=== PATIENT | female | born 1970 | race Two or more races ===

== ENCOUNTER 2020-07-24 09:48 | Outpatient (REF) | payer MEDICAID, SELFPAY | END 2020-07-24 09:49 | disposition home or self-care (01) | LOC: HO.LAB 09:48 | PROVIDERS: PCP Internal Medicine Geriatric Medicine; Visit Provider Internal Medicine | DX: Z76.89 Persons encountering health services in other specified circumstances (principal) ==

== ENCOUNTER 2020-12-18 15:21 | Outpatient (REF) | payer MEDICAID, SELFPAY | END 2020-12-18 15:22 | disposition home or self-care (01) | LOC: HO.MAMMO 15:21 | PROVIDERS: PCP Internal Medicine Geriatric Medicine; Visit Provider Internal Medicine Geriatric Medicine | DX: Z13.89 Encounter for screening for other disorder (principal) ==

== ENCOUNTER 2021-04-01 14:14 | Outpatient (REF) | payer MEDICAID, SELFPAY ==
--- NOTE | ~2021-04-01 | MM_ITS ---
EXAMINATION: MM DIAGNOSTIC DIGITAL BREAST TOMOSYNTHESIS, BILATERAL CLINICAL INFORMATION: Due for yearly. Also follow-up probable benign calcifications upper outer quadrant right breast. The lifetime risk of breast cancer based on the Tyrer-Cuzick Model is 6%. COMPARISON: Mammography: 12/11/2019, 06/06/2019, 11/24/2018, 11/20/2018 (BI-RADS 0), 11/17/2017 TECHNIQUE: Digital breast tomosynthesis is performed in both the craniocaudal and mediolateral oblique views along with computer-aided detection (CAD). Synthesized 2D images are generated from the tomosynthesis. Additional magnification views of the right breast are obtained in the CC, ML, and MLO views. FINDINGS: The breasts are heterogeneously dense, which may obscure small masses (ACR BI-RADS breast composition Category c). Parenchymal pattern is similar to prior studies. There is no significant mass, developing density, or architectural abnormality. There are no abnormal calcifications. There are vascular calcifications in the posterior upper outer right breast and right axilla. Other layering calcifications upper outer right breast noted on prior diagnostic studies are no longer demonstrated. There are no interval suspicious changes from prior diagnostic studies. The calcifications under prior surveillance are now considered benign. Results are provided to the patient at time of visit by the technologist. MM/MM tomosynthesis diagnostic RT IMPRESSION: No mammographic evidence of malignancy. ASSESSMENT: BI-RADS 2: Benign RECOMMENDATION: Routine annual mammography screening. This patient's information was entered into a reminder system with a target due date for their next mammogram.
== END 2021-04-01 14:15 | disposition home or self-care (01) ==
LOC: HO.MAMMO 14:14
PROVIDERS: Visit Provider Internal Medicine Geriatric Medicine
DX: R92.1 Mammographic calcification found on diagnostic imaging of breast (principal)
CPT/HCPCS: 77061; 77065

== ENCOUNTER 2021-09-21 01:07 | Emergency (ER) | payer MEDICAID, SELFPAY ==
[2021-09-21 01:09] VITALS: BP 180/111; PULSE 85; RESP 18; TEMP 36.8; O2SAT 93; BMI 20.1
[2021-09-21 03:09] VITALS: BP 195/99; PULSE 83; RESP 24; TEMP 36.7; O2SAT 99
[2021-09-21] MEDS: Ondansetron ODT 4 MG TAB.RAPDIS TRANSLINGU (03:23)
[2021-09-21 04:47] VITALS: BP 181/95; PULSE 74; RESP 18; O2SAT 97
[2021-09-21] MEDS: Ketorolac Tromethamine 15 MG/ML VIAL IM (04:54)
[2021-09-21] MEDS: Acetaminophen 325 MG TABLET 975 MG PO (04:54)
--- NOTE | 2021-09-21 04:56 | ED.NAVMDI ---
HPI - Nausea/Vomiting/Diarrhea General Chief complaint: Nausea/Vomiting/Diarrhea Stated complaint: vomiting Time Seen by Provider: 09/21/21 03:16 Source: patient Mode of arrival: ambulatory History of Present Illness HPI Narrative: 51-year-old female presents with complaints of having significant dental pain for which she was never prescribed any medication and then took some drops of morphine from her cousin for pain relief and then developed significant vomiting afterwards. The vomiting has since resolved and patient states that she is feeling much better. Otherwise, she denies any obstipation, diarrhea, urinary symptoms. Related Data Previous Rx's Medication Instructions Recorded ketorolac 10 mg tablet 10 mg PO Q6H PRN 5 Days #20 tab 09/21/21 ondansetron HCl 4 mg tablet 4 mg PO Q8H PRN #7 tab 09/21/21 (Zofran) Allergies Allergy/AdvReac Type Severity Reaction Status Date / Time No Known Allergies Allergy Unverified 07/10/20 16:47 [No Known Allergies*] Review of Systems Review of Systems: Pertinent positives and negatives as stated in HPI 10 point review of systems is otherwise negative. PMFSH Past Medical History Source: nursing notes reviewed Social History Social History Advance Directives: No Advance Directives Information Provided: No Patient : No Physical Exam Vital Signs: Vital Signs: Last Vital Signs Temp 98.0 F 09/21/21 03:09 Pulse 74 09/21/21 04:47 Resp 18 09/21/21 04:47 BP 181/95 H 09/21/21 04:47 Pulse Ox 97 09/21/21 04:47 Body Mass Index 20.1 VITAL SIGNS: Reviewed. GENERAL: Well developed, well nourished, in no acute distress. HEAD: Normocephalic/atraumatic EYES: PERRLA, EOMI OROPHARYNX: no oral lesions noted, posterior pharynx clear LUNGS: Normal breath sounds. No adventitious sounds or accessory muscle use. SpO2<97> CARDIOVASCULAR: Regular rate and rhythm without noted murmurs. ABDOMEN: Soft, non-tender, non-distended with bowel sounds. NEUROLOGIC: Alert and oriented x 4. Course Course Course Narrative: 51-year-old female with history and clinical presentation consistent with medication associated affects and now has completely resolved after being provided with Zofran. Patient will receive combination analgesics and then be discharged home in stable condition. Discharge Plan Discharge Clinical Impression: Pain, dental, Side effect of medication Patient Disposition: Home, Self-Care Instructions: Toothache (ED) Additional Instructions: 1. Tylenol 1000 mg, orally, every 6 hours as needed for pain control. Do not exceed 4000 mg within 24 hours. 2. Please follow-up with your dentist for re-evaluation and further outpatient management. Return to the ER for worsening symptoms. Prescriptions: New ondansetron HCl [Zofran] 4 mg tablet 4 mg PO Q8H PRN (Reason: nausea and vomiting) Qty: 7 RF: 0 ketorolac 10 mg tablet 10 mg PO Q6H PRN (Reason: pain) 5 Days Qty: 20 RF: 0 Referrals: Name,MD Orion [Primary Care Provider] - 2 days
== END 2021-09-21 05:24 | disposition home or self-care (01) ==
PROVIDERS: Emergency Provider Student in an Organized Health Care Education/Training Program; PCP Internal Medicine Geriatric Medicine
DX: R11.2 Nausea with vomiting, unspecified (principal); K08.89 Other specified disorders of teeth and supporting structures; Z79.899 Other long term (current) drug therapy
CPT/HCPCS: 96372; 99284; J1885

== ENCOUNTER → 2022-01-14 15:53 | Outpatient (BNVA) | payer MEDICAID, SELFPAY | PROVIDERS: PCP Internal Medicine Geriatric Medicine; Referring Provider Internal Medicine Geriatric Medicine; Visit Provider Nurse Practitioner | DX: R11.2 Nausea with vomiting, unspecified (principal); R10.13 Epigastric pain | CPT/HCPCS: 99202 ==

== ENCOUNTER 2023-04-11 13:42 | Emergency (ER) | payer MEDICAID, SELFPAY ==
[2023-04-11 15:29] VITALS: BP 136/94; PULSE 90; RESP 18; TEMP 36.3; O2SAT 97; BMI 19.5
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
[2023-04-11] MEDS: Morphine Sulfate Immed Release 15 MG TABLET PO (17:25)
[2023-04-11] MEDS: Lidocaine 4 % Patch ADH..PATCH 1 PATCH TRANSDERMA (17:25)
[2023-04-11] MEDS: Ketorolac Tromethamine 15 MG/ML VIAL 30 MG IM (18:47)
== END 2023-04-11 18:53 | disposition home or self-care (01) ==
PROVIDERS: Emergency Provider Emergency Medicine; PCP Internal Medicine Geriatric Medicine
DX: M62.838 Other muscle spasm (principal); M54.2 Cervicalgia; R51.9 Headache, unspecified; Z79.899 Other long term (current) drug therapy
CPT/HCPCS: 96372; 99283; 99284; J1885

== ENCOUNTER 2024-05-29 07:34 | Emergency (ER) | payer MEDICAID, SELFPAY ==
[2024-05-29 07:45] VITALS: BP 127/96; PULSE 114; RESP 17; TEMP 36.9; O2SAT 95; BMI 22.6
--- NOTE | 2024-05-29 08:08 | ED.SKABFB ---
HPI - Skin/Abscess/Foreign Bdy General Chief complaint: Skin/Abscess/Foreign Body Stated complaint: Fever Time Seen by Provider: 05/29/24 08:00 Source: patient and RN notes reviewed Mode of arrival: ambulatory Limitations: no limitations History of Present Illness ED Provider: Veronica Sheppard PA-C HPI narrative: This is a 53-year-old female who presents emergency department with complaints of shingles to the right side of her neck. Patient was seen in [place] on May 11 where she wakes diagnosed with shingles. She was prescribed acyclovir which she has been taking which has provided her without any relief. She states that the rash has improved however she continues to have burning and pain to the right side of her neck and jaw. She denies any headache, dizziness, blurred vision, ear pain, sore throat, chest pain, shortness breath, abdominal pain, nausea, vomiting or diarrhea. Denies taking any medications at home to treat her current symptoms other than the acyclovir. No other complaints or concerns at this time. Related Data Home Medications ?Medication ?Instructions ?Recorded ?Confirmed acetaminophen 500 mg tablet 500 mg PO Q8H PRN 01/14/22 clonazepam 2 mg tablet 2 mg PO BID 01/14/22 mirtazapine 30 mg tablet 30 mg PO BEDTIME 01/14/22 quetiapine 400 mg tablet,extended 400 mg PO BEDTIME 01/14/22 release 24 hr Previous Rx's ?Medication ?Instructions ?Recorded ketorolac 10 mg tablet 10 mg PO Q6H PRN pain 5 days #20 09/21/21 tabs ondansetron HCl 4 mg tablet 4 mg PO Q8H PRN nausea and 09/21/21 (Zofran) vomiting #7 tabs pantoprazole 40 mg tablet,delayed 40 mg PO DAILY #30 tabs 01/14/22 release cyclobenzaprine 10 mg tablet 10 mg PO BEDTIME PRN muscle spasm 04/11/23 #7 tabs ketorolac 10 mg tablet 10 mg PO TID PRN pain 5 days #15 04/11/23 tabs lidocaine 5 % topical patch 1 patch topical DAILY PRN pain #15 04/11/23 ea acetaminophen 500 mg tablet 1,000 mg (2 x 500 mg) PO Q8H PRN 05/29/24 (Tylenol Extra Strength) pain #30 tabs gabapentin 300 mg capsule 300 mg PO DAILY #20 caps 05/29/24 oxycodone 5 mg tablet 5 mg PO Q6H PRN pain #10 tabs 05/29/24 prednisone 20 mg tablet 40 mg (2 x 20 mg) PO DAILY 5 days 05/29/24 #10 tabs cephalexin 500 mg capsule 500 mg PO QID 10 days #40 caps 06/09/24 diphenhydramine HCl 50 mg capsule 50 mg PO Q8H PRN itching #12 caps 06/09/24 mupirocin 2 % topical ointment 1 appl topical TID #22 grams 06/09/24 oxycodone 5 mg tablet 5 mg PO Q6H PRN pain #14 tabs 06/09/24 Allergies Allergy/AdvReac Type Severity Reaction Status Date / Time No Known Allergies Allergy Verified 06/08/24 22:16 [No Known Allergies*] Review of Systems Review of Systems: Yes all other systems are reviewed and are negative Constitutional: Constitutional: Reports as per [facility] Social History Social History Advance Directives: No Advance Directives Information Provided: Yes Physical Exam Vital Signs: Vital Signs: Last Vital Signs Temp 98.2 F 05/29/24 09:04 Pulse 101 H 05/29/24 09:04 Resp 16 05/29/24 09:04 BP 122/86 05/29/24 09:04 Pulse Ox 96 05/29/24 09:04 O2 Del Method Room Air 05/29/24 09:04 BMI result Body Mass Index 22.6 Const: General: cooperative, comfortable and no acute distress Orientation/consciousness: patient oriented x3 Limitations: no limitations HEENT: Other: Right ear, with no erythema, vesicles within the ear canal Head: Yes normal to inspection, Yes normocephalic and Yes atraumatic Ears: hearing grossly normal bilaterally and TM's normal bilaterally General nose exam: Normal external nose present Face and sinus: Yes normal facial exam Mouth: Normal oral and palatal mucosa present, oropharynx normal and moist mucous membranes Throat: Yes posterior oropharynx normal Eyes: General: appearance normal, both eyes and all related structures Eyelids: Yes eyelids normal Conjunctivae: conjunctivae normal Sclerae: sclerae normal Pupils: Equal, round and reactive pupils present EOM: EOMs intact bilaterally Neck: Neck: Yes normal visual inspection, Yes full ROM and Yes no lymphadenopathy Lymphatic: no lymphadenopathy noted Chest: Chest palpation & inspection: normal inspection of the chest Resp: Effort & Inspection: normal respiratory effort and able to speak in complete sentences Auscultation: clear to auscultation bilaterally, no crackles, no rales, no rhonchi and no wheezes Cardio: Rate: regular rate Rhythm: regular rhythm Heart sounds: S1 normal heart sound present and S2 normal heart sound present GI: Inspection: Yes normal to inspection Skin: Other: Right lateral face just inferior to the ear healing flat lesions,, no drainage, no surrounding erythema or warmth, tender to light palpation General skin exam: no rashes or lesions noted Trauma: no lacerations or abrasions Wounds: no wounds Neuro: General: patient oriented x3 and moves all extremities Cranial nerves: Yes Equal, round and reactive pupils present Extrem: General: Yes normal to inspection Right upper extremity: normal to inspection Left upper extremity: normal to inspection Right lower extremity: normal to inspection Left lower extremity: normal to inspection Medications Administered Discontinued Medications Generic Name Dose Route Start Last Admin Trade Name Freq PRN Reason Stop Dose Admin Oxycodone HCl 5 mg 05/29/24 08:23 05/29/24 08:56 Oxycodone Hcl Immed Release 5 Mg Tablet PO 05/29/24 08:24 5 mg ONCE ONE Administration Medical Decision Making Medical Decision Making [facility] Narrative: This is a 53-year-old female who presents emergency department with complaints of ongoing shingle pain to the right side of her face and neck. She was diagnosed with shingles on May 11, she has been taking prescribed acyclovir without any relief. She has not taken any pain medication for her symptoms. She was not placed on prednisone. Patient healing rash consistent with shingles on the right side of her face, does not extend into the ear canal. No surrounding erythema or warmth. Vital signs are within normal limits. She is alert and oriented times 4, no neurologic symptoms, no headache, dizziness, blurred vision, double vision. Will treat with course of prednisone, and pain medication. Given strict return precautions. Advised to follow-up with her PCP. She understands and agrees with plan. Patient stable for discharge Differential Diagnosis Differential Diagnoses: The differential diagnosis associated with the presentation includes Cellulitis, shingles, post herpetic pain, contact dermatitis Discharge Plan Discharge Clinical Impression: Shingles Patient Disposition: Home, Self-Care Instructions: Shingles (ED) Additional Instructions: You were seen in the emergency department due to ongoing pain due to the shingles that is on the right side of your neck. Please take prescribed medication as directed. Continue taking your antiviral medication that you are prescribed in [place]. Take prescribed prednisone as directed. Take gabapentin for pain. You may also take oxycodone as needed for severe pain. Please be advised that oxycodone can cause drowsiness, do not drink alcohol or drive while taking this medication. Take Tylenol for your symptoms as well. If any new or worsening symptoms occur including but not limited to changes in vision, worsening pain, please return for re-evaluation. Prescriptions: New oxycodone 5 mg tablet 5 mg PO Q6H PRN (Reason: pain) Qty: 10 0RF Rx Instructions: Partial Fill upon patient request. acetaminophen [Tylenol Extra Strength] 500 mg tablet 1,000 mg PO Q8H PRN (Reason: pain) Qty: 30 0RF prednisone 20 mg tablet 40 mg PO DAILY 5 Days Qty: 10 0RF gabapentin 300 mg capsule 300 mg PO DAILY Qty: 20 0RF No Action ondansetron HCl [Zofran] 4 mg tablet 4 mg PO Q8H PRN (Reason: nausea and vomiting) Qty: 7 0RF ketorolac 10 mg tablet 10 mg PO Q6H PRN (Reason: pain) 5 Days Qty: 20 0RF Rx Instructions: Patient received Toradol in the emergency room. cyclobenzaprine 10 mg tablet 10 mg PO BEDTIME PRN (Reason: muscle spasm) Qty: 7 0RF ketorolac 10 mg tablet 10 mg PO TID PRN (Reason: pain) 5 Days Qty: 15 0RF lidocaine 5 % adhesive patch,medicated 1 patch topical DAILY PRN (Reason: pain) Qty: 15 0RF Rx Instructions: leave on most painful area for up to 12 hrs oxycodone 5 mg tablet 5 mg PO Q6H PRN (Reason: pain) Qty: 14 0RF Rx Instructions: Partial Fill upon patient request. mupirocin 2 % ointment 1 appl topical TID Qty: 22 0RF cephalexin 500 mg capsule 500 mg PO QID 10 Days Qty: 40 0RF diphenhydramine HCl 50 mg capsule 50 mg PO Q8H PRN (Reason: itching) Qty: 12 0RF quetiapine 400 mg tablet extended release 24 hr 400 mg PO BEDTIME clonazepam 2 mg tablet 2 mg PO BID mirtazapine 30 mg tablet 30 mg PO BEDTIME acetaminophen 500 mg tablet 500 mg PO Q8H PRN pantoprazole 40 mg tablet,delayed release (DR/EC) 40 mg PO DAILY Qty: 30 6RF Interventions: ED Discharge Assessment Last Done: 05/29/24 09:04 Discharge Date/Time: 05/29/24 09:05 Print Language: Nauruan
[2024-05-29] MEDS: oxyCODONE HCl Immed Release 5 MG TABLET PO (08:56)
[2024-05-29 09:04] VITALS: BP 122/86; PULSE 101; RESP 16; TEMP 36.8; O2SAT 96
--- NOTE | 2024-05-29 09:04 | PC.NURSE ---
pt medicated per order
== END 2024-05-29 09:05 | disposition home or self-care (01) ==
PROVIDERS: Emergency Provider Emergency Medicine; PCP Internal Medicine Geriatric Medicine
DX: B02.9 Zoster without complications (principal); R21 Rash and other nonspecific skin eruption
CPT/HCPCS: 99283

== ENCOUNTER 2024-06-08 21:56 | Emergency (ER) | payer MEDICAID, SELFPAY ==
[2024-06-08 22:12] VITALS: BP 169/97; PULSE 116; RESP 24; TEMP 36.6; O2SAT 98; BMI 22.7
--- NOTE | 2024-06-09 00:18 | ED_ITS ---
HPI - General Adult General Chief complaint: General Medical Stated complaint: rash on neck Time Seen by Provider: 06/09/24 00:18 History of Present Illness ED Provider: Setve BREWER narrative: The patient is a 53-year-old female who comes to the emergency room with a complaint of pain on the right side of her neck and face. She says that 1 month ago on May 08 she was diagnosed with shingles in [place]. She was prescribed acyclovir which she took. She continued to have a lot of pain on the right side of her face and the right side of her neck and a lot of skin dryness and redness in the same region. She came to the emergency room here on May 29, 10 days ago. At that time she was prescribed a course of prednisone, gabapentin, and oxycodone. The patient returns today saying that she is not getting any better. She continues to have a great deal of pain and peeling and scaling of the skin of her face and neck on the right side. She also says that she has had fevers intermittently. She says she had a temperature of 102 degrees yesterday. She feels extremely bad. Related Data Home Medications ?Medication ?Instructions ?Recorded ?Confirmed acetaminophen 500 mg tablet 500 mg PO Q8H PRN 01/14/22 clonazepam 2 mg tablet 2 mg PO BID 01/14/22 mirtazapine 30 mg tablet 30 mg PO BEDTIME 01/14/22 quetiapine 400 mg tablet,extended 400 mg PO BEDTIME 01/14/22 release 24 hr Previous Rx's ?Medication ?Instructions ?Recorded ketorolac 10 mg tablet 10 mg PO Q6H PRN pain 5 days #20 09/21/21 tabs ondansetron HCl 4 mg tablet 4 mg PO Q8H PRN nausea and 09/21/21 (Zofran) vomiting #7 tabs pantoprazole 40 mg tablet,delayed 40 mg PO DAILY #30 tabs 01/14/22 release cyclobenzaprine 10 mg tablet 10 mg PO BEDTIME PRN muscle spasm 04/11/23 #7 tabs ketorolac 10 mg tablet 10 mg PO TID PRN pain 5 days #15 04/11/23 tabs lidocaine 5 % topical patch 1 patch topical DAILY PRN pain #15 04/11/23 ea acetaminophen 500 mg tablet 1,000 mg (2 x 500 mg) PO Q8H PRN 05/29/24 (Tylenol Extra Strength) pain #30 tabs gabapentin 300 mg capsule 300 mg PO DAILY #20 caps 05/29/24 oxycodone 5 mg tablet 5 mg PO Q6H PRN pain #10 tabs 05/29/24 prednisone 20 mg tablet 40 mg (2 x 20 mg) PO DAILY 5 days 05/29/24 #10 tabs cephalexin 500 mg capsule 500 mg PO QID 10 days #40 caps 06/09/24 diphenhydramine HCl 50 mg capsule 50 mg PO Q8H PRN itching #12 caps 06/09/24 mupirocin 2 % topical ointment 1 appl topical TID #22 grams 06/09/24 oxycodone 5 mg tablet 5 mg PO Q6H PRN pain #14 tabs 06/09/24 Allergies Allergy/AdvReac Type Severity Reaction Status Date / Time No Known Allergies Allergy Verified 06/08/24 22:16 [No Known Allergies*] Review of Systems 2 Review of Systems: Yes all other systems are reviewed and are negative [facility] Social History Social History Advance Directives: No Advance Directives Information Provided: Yes Physical Exam ED Vital Signs: Vital Signs - 24 hr 06/08/24 22:12 06/09/24 01:24 06/09/24 02:11 Temperature 97.9 F Pulse Rate 116 H Respiratory Rate 24 H 18 14 Blood Pressure 169/97 H Pulse Oximetry 98 Oxygen Delivery Method Room Air 06/09/24 02:23 Temperature 97.8 F Pulse Rate 100 Respiratory Rate 18 Blood Pressure 160/90 H Pulse Oximetry 98 Oxygen Delivery Method Room Air BMI result Body Mass Index 22.7 Const Other: The patient is a 53-year-old female who was awake and alert and seems very anxious and uncomfortable. She has a lot of dryness and redness to the right side of her neck, the right side of her face, and the right external ear. HENMT Other: The patient has an unusual area of skin redness and dryness in the right side of her face and the right external ear extending into the right side of her neck. The auricle of the right ear is significantly affected with apparent dryness and redness of the skin. With otoscopic exam there is no purulence in the right ear canal. The tympanic membrane appears normal. Posterior pharynx is unremarkable. No intraoral lesions. Eyes Other: The eyes appear spared. Pupils are round equal, conjunctivae are clear, extraocular movements are intact, the eyelids are unremarkable. Neck Other: The rash which is on the patient's right cheek and around the right ear extends into the right upper neck. It is characterized by redness and dry skin. No neck swelling. No adenopathy Resp Effort & Inspection: normal respiratory effort Auscultation: clear to auscultation bilaterally Cardio Rate: regular rate Rhythm: regular rhythm Heart sounds: S1 normal heart sound present and S2 normal heart sound present GI Other: Abdomen is soft and nontender Skin Other: The skin of the right side of the face, the right ear, and the right upper neck is all quite abnormal. There is a pale erythema associated with significant dryness and flakiness of the skin. She is diffusely tender. There is no drainage or purulence. Interestingly there seems to be some slight skin changes to the tips of the fingers of the right hand. The patient thinks that the problems from the skin on the right side of her face are spreading to the tips of the fingers from her constant rubbing and itching. Neuro Other: The patient is awake and alert. She seemed distracted by the discomfort of her facial skin problems. She seemed very itchy. Extrem Other: No peripheral edema Medications Administered Discontinued Medications Generic Name Dose Route Start Last Admin Trade Name Freq PRN Reason Stop Dose Admin Cephalexin HCl 1,000 mg 06/09/24 01:53 06/09/24 02:11 Cephalexin 500 Mg Capsule PO 06/09/24 01:54 1,000 mg ONCE ONE Administration Diphenhydramine HCl 50 mg 06/09/24 01:55 06/09/24 02:11 Diphenhydramine Hcl 25 Mg Capsule PO 06/09/24 01:56 50 mg ONCE ONE Administration Lorazepam 1 mg 06/09/24 00:30 06/09/24 01:24 Lorazepam 2 Mg/Ml Vial IVPUSH 06/09/24 00:31 1 mg ONCE ONE Administration Morphine Sulfate 4 mg 06/09/24 00:30 06/09/24 01:24 Morphine Sulfate 10 Mg/Ml Cartridge IVPUSH 06/09/24 00:31 4 mg ONCE ONE Administration Protocol Medical Decision Making Medical Decision Making [facility] Narrative: The patient presents with a very unusual skin problem on the right side of her face, the auricle of the right ear, and the right upper neck. One month ago she was apparently diagnosed with shingles on the right side of her face in [place] and she took a course of acyclovir. She was seen here 10 days ago on put on a course of prednisone. She feels that she is not getting any better at all. She looks extremely uncomfortable, complaining of discomfort and itchiness. She says that she has been having fevers at home. She does not seem septic [place] [id number] but her CRP is normal. Overall her presentation is puzzling. It is not entirely clear to me that this is a post herpetic or post zoster syndrome. It looks something like a dermatitis or perhaps it is some kind of impetigo variant. Although there was no pus in the right ear canal swab of the right ear canal for a culture. The patient will be placed on a course of cephalexin and will also be prescribed mupirocin to apply topically. She was prescribed oxycodone for pain and diphenhydramine for itchiness. She should contact her PCP on Tuesday. I suspect she may need to be referred to dermatology. Lab Data 06/09/24 01:14 06/09/24 01:14 Labs: Lab Results 06/09/24 Range/Units 01:14 WBC 15.1 H (4.8-10.8) X10*3/uL RBC 4.47 (4.20-5.50) X10*6/uL Hgb 13.6 (12.0-16.0) g/dl Hct 40.3 (37.0-47.0) % MCV 90.2 (80.0-98.0) fL MCH 30.4 (27.0-33.0) pg MCHC 33.7 (31.0-35.0) g/dl RDW 14.6 (11.0-16.0) % Plt Count 278 (160-400) X10*3/uL MPV 10.3 (9.4-12.3) fL Immature Gran % (Auto) 0.5 H (0.0-0.4) % Neut % (Auto) 74.3 H (45-73) % Lymph % (Auto) 17.2 L (20-40) % [place] % (Auto) 7.9 (2-11) % Eos % (Auto) 0.0 (0-4) % Baso % (Auto) 0.1 (0-2) % Lymph # (Auto) 2.6 (1.2-4.9) X10*3/uL [place] # (Auto) 1.2 (0.1-1.2) X10*3/uL Eos # (Auto) 0.0 (0.0-0.4) X10*3/uL Baso # (Auto) 0.0 (0.0-0.2) X10*3/uL Abs Immat Gran (auto) 0.08 H (0.00-0.03) X10*3/uL Absolute Neuts (auto) 11.2 H (2.0-8.3) x10*3/uL Absolute Nucleated RBC 0.000 (0.0-0.012) X10*3/uL Nucleated RBC % (auto) 0.0 (0.0-0.2) /100WBC Sodium 140 (135-145) mmol/L Potassium 4.0 (3.3-5.1) mmol/L Chloride 102 (96-108) mmol/L Carbon Dioxide 27 (22-29) mmol/L Anion Gap 15 (12-20) BUN 15 (9-16) mg/dL Creatinine 0.74 (0.5-1.4) mg/dL Estim Creat Clear Calc 71.1 Estimated GFR > 60 Random Glucose 99 (60-115) mg/dL Lactic Acid 0.8 (0.5-2.0) mmol/L Calcium 10.0 (8.4-10.2) mg/dL Total Bilirubin 0.3 (0.0-1.0) mg/dL Direct Bilirubin 0.1 (0.0-0.5) mg/dL AST 14 (5-31) U/L ALT 20 (0-31) U/L Alkaline Phosphatase 98 (39-117) U/L C-Reactive Protein 0.27 (< or = 0.50) mg/dL Total Protein 7.2 (6.5-8.0) g/dL Albumin 4.4 (3.5-5.0) g/dL Discharge Plan Discharge Clinical Impression: Facial dermatitis Patient Disposition: Home, Self-Care Additional Instructions: Please take the antibiotic cephalexin 4 times a day, approximately every 6 hours. Please apply mupirocin ointment to your affected skin 3 times a day. Please use Benadryl as needed for itchiness. I have sent a prescription for oxycodone that you may use as needed for pain. You may also use ibuprofen and acetaminophen. Please contact your regular doctor on Tuesday. Please get rechecked early next week at your regular doctor's office. Return to the emergency room if significantly worse. Prescriptions: New oxycodone 5 mg tablet 5 mg PO Q6H PRN (Reason: pain) Qty: 14 0RF Rx Instructions: Partial Fill upon patient request. mupirocin 2 % ointment 1 appl topical TID Qty: 22 0RF cephalexin 500 mg capsule 500 mg PO QID 10 Days Qty: 40 0RF diphenhydramine HCl 50 mg capsule 50 mg PO Q8H PRN (Reason: itching) Qty: 12 0RF No Action ondansetron HCl [Zofran] 4 mg tablet 4 mg PO Q8H PRN (Reason: nausea and vomiting) Qty: 7 0RF ketorolac 10 mg tablet 10 mg PO Q6H PRN (Reason: pain) 5 Days Qty: 20 0RF Rx Instructions: Patient received Toradol in the emergency room. cyclobenzaprine 10 mg tablet 10 mg PO BEDTIME PRN (Reason: muscle spasm) Qty: 7 0RF ketorolac 10 mg tablet 10 mg PO TID PRN (Reason: pain) 5 Days Qty: 15 0RF lidocaine 5 % adhesive patch,medicated 1 patch topical DAILY PRN (Reason: pain) Qty: 15 0RF Rx Instructions: leave on most painful area for up to 12 hrs oxycodone 5 mg tablet 5 mg PO Q6H PRN (Reason: pain) Qty: 10 0RF Rx Instructions: Partial Fill upon patient request. acetaminophen [Tylenol Extra Strength] 500 mg tablet 1,000 mg PO Q8H PRN (Reason: pain) Qty: 30 0RF prednisone 20 mg tablet 40 mg PO DAILY 5 Days Qty: 10 0RF gabapentin 300 mg capsule 300 mg PO DAILY Qty: 20 0RF quetiapine 400 mg tablet extended release 24 hr 400 mg PO BEDTIME clonazepam 2 mg tablet 2 mg PO BID mirtazapine 30 mg tablet 30 mg PO BEDTIME acetaminophen 500 mg tablet 500 mg PO Q8H PRN pantoprazole 40 mg tablet,delayed release (DR/EC) 40 mg PO DAILY Qty: 30 6RF Referrals: Name,MD Orion [Physician] - (complex facial dermatitis) Interventions: ED Discharge Assessment Last Done: 06/09/24 02:23 Discharge Date/Time: 06/09/24 02:25 Print Language: [place] L[place]an
[2024-06-09 01:19] LABS: Basophils Percent Auto 0.1 % (0-2); Hematocrit 40.3 % (37.0-47.0); Hemoglobin 13.6 g/dl (12.0-16.0); Imm Gran Abs Auto 0.08 X10*3/uL (0.00-0.03); Imm Gran Pct Auto 0.5 % (0.0-0.4); Lymphocytes Absolute Auto 2.6 X10*3/uL (1.2-4.9); Lymphocytes Percent Auto 17.2 % (20-40); MANUAL DIFF FLAG NO; Mean Corpuscular HGB Conc 33.7 g/dl (31.0-35.0); Mean Corpuscular Hemoglobin 30.4 pg (27.0-33.0); Mean Corpuscular Volume 90.2 fL (80.0-98.0); Mean Platelet Volume 10.3 fL (9.4-12.3); Monocytes Absolute Auto 1.2 X10*3/uL (0.1-1.2); Monocytes Percent Auto 7.9 % (2-11); Neutrophils Absolute Auto 11.2 x10*3/uL (2.0-8.3); Neutrophils Percent Auto 74.3 % (45-73); Platelet Count 278 X10*3/uL (160-400); Red Blood Count 4.47 X10*6/uL (4.20-5.50); Red Cell Distribution Width 14.6 % (11.0-16.0); White Blood Count 15.1 X10*3/uL (4.8-10.8)
[2024-06-09 01:24] VITALS: RESP 18
[2024-06-09] MEDS: LORazepam 2 MG/ML VIAL 1 MG IVPUSH (01:24)
[2024-06-09] MEDS: Morphine Sulfate 10 MG/ML CARTRIDGE 4 MG IVPUSH (01:24)
[2024-06-09 01:28] LABS: Lactic Acid 0.8 mmol/L (0.5-2.0)
--- NOTE | 2024-06-09 01:30 | PC.NURSE ---
Pt medicated per mar. Pt denies NKDA Pts family at bedside. Plan of care ongoing
[2024-06-09 01:33] LABS: Alanine Aminotransferase 20 U/L (0-31); Albumin Level 4.4 g/dL (3.5-5.0); Alkaline Phosphatase 98 U/L (39-117); Anion Gap 15 (12-20); Aspartate Amino Transferase 14 U/L (5-31); Bilirubin Direct 0.1 mg/dL (0.0-0.5); Bilirubin Total 0.3 mg/dL (0.0-1.0); Blood Urea Nitrogen 15 mg/dL (9-16); C Reactive Protein 0.27 mg/dL (< or = 0.50); Carbon Dioxide 27 mmol/L (22-29); Chloride 102 mmol/L (96-108); Creatinine Clr Calc Pharmacy 71.1; Estimated Glomerular Filt Rate > 60; Glucose Random 99 mg/dL (60-115); Sodium 140 mmol/L (135-145); Total Protein 7.2 g/dL (6.5-8.0)
[2024-06-09 02:11] VITALS: RESP 14
[2024-06-09] MEDS: cephALEXin 500 MG CAPSULE 1000 MG PO (02:11)
[2024-06-09] MEDS: diphenhydrAMINE HCL 25 MG CAPSULE 50 MG PO (02:11)
--- NOTE | 2024-06-09 02:17 | PC.NURSE ---
Pt medicated per dec. Plan of care ongoing.
[2024-06-09 02:23] VITALS: BP 160/90; PULSE 100; RESP 18; TEMP 36.6; O2SAT 98
== END 2024-06-09 02:25 | disposition home or self-care (01) ==
PROVIDERS: Emergency Provider Emergency Medicine; PCP Internal Medicine
DX: L30.8 Other specified dermatitis (principal)
CPT/HCPCS: 36415; 80048; 80076; 83605; 85025; 86140; 87040; 87070; 87077; 87186; 87205; 96374; 96375; 99284; J2060; J2270

== ENCOUNTER 2024-06-11 18:30 | Emergency (ER) | payer MEDICAID, SELFPAY ==
[2024-06-11 23:35] VITALS: BP 197/131; PULSE 106; RESP 20; TEMP 37.3; O2SAT 98; BMI 22.8
--- NOTE | 2024-06-12 00:29 | ED_ITS ---
HPI - General Adult General Chief complaint: General Medical Stated complaint: shingles Time Seen by Provider: 06/11/24 23:56 Source: patient Mode of arrival: ambulatory Limitations: no limitations History of Present Illness ED Provider: darius Related Data Home Medications ?Medication ?Instructions ?Recorded ?Confirmed acetaminophen 500 mg tablet 500 mg PO Q8H PRN 01/14/22 clonazepam 2 mg tablet 2 mg PO BID 01/14/22 mirtazapine 30 mg tablet 30 mg PO BEDTIME 01/14/22 quetiapine 400 mg tablet,extended 400 mg PO BEDTIME 01/14/22 release 24 hr Previous Rx's ?Medication ?Instructions ?Recorded ketorolac 10 mg tablet 10 mg PO Q6H PRN pain 5 days #20 09/21/21 tabs ondansetron HCl 4 mg tablet 4 mg PO Q8H PRN nausea and 09/21/21 (Zofran) vomiting #7 tabs pantoprazole 40 mg tablet,delayed 40 mg PO DAILY #30 tabs 01/14/22 release cyclobenzaprine 10 mg tablet 10 mg PO BEDTIME PRN muscle spasm 04/11/23 #7 tabs ketorolac 10 mg tablet 10 mg PO TID PRN pain 5 days #15 04/11/23 tabs lidocaine 5 % topical patch 1 patch topical DAILY PRN pain #15 04/11/23 ea acetaminophen 500 mg tablet 1,000 mg (2 x 500 mg) PO Q8H PRN 05/29/24 (Tylenol Extra Strength) pain #30 tabs gabapentin 300 mg capsule 300 mg PO DAILY #20 caps 05/29/24 oxycodone 5 mg tablet 5 mg PO Q6H PRN pain #10 tabs 05/29/24 prednisone 20 mg tablet 40 mg (2 x 20 mg) PO DAILY 5 days 05/29/24 #10 tabs cephalexin 500 mg capsule 500 mg PO QID 10 days #40 caps 06/09/24 diphenhydramine HCl 50 mg capsule 50 mg PO Q8H PRN itching #12 caps 06/09/24 mupirocin 2 % topical ointment 1 appl topical TID #22 grams 06/09/24 oxycodone 5 mg tablet 5 mg PO Q6H PRN pain #14 tabs 06/09/24 gabapentin 300 mg capsule 300 mg PO BID #60 caps 06/12/24 oxycodone 5 mg tablet 5 mg PO Q6H PRN pain #20 tabs 06/12/24 Allergies Allergy/AdvReac Type Severity Reaction Status Date / Time No Known Allergies Allergy Verified 06/11/24 23:36 [No Known Allergies*] [facility] Social History Social History Advance Directives: No Advance Directives Information Provided: Yes Do you have a plan to hurt others: No Plan Physical Exam ED Vital Signs: Vital Signs - 24 hr 06/11/24 23:35 Temperature 99.1 F Pulse Rate 106 H Respiratory Rate 20 Blood Pressure 197/131 H Pulse Oximetry 98 Oxygen Delivery Method Room Air BMI result Body Mass Index 22.8 Discharge Plan Discharge Clinical Impression: HZV (herpes zoster virus) post herpetic neuralgia Patient Disposition: Home, Self-Care Instructions: Shingles (ED) Additional Instructions: Continue medication as prescribed Pain medication as prescribed Increase the dose of gabapentin to 300 mg twice daily Follow with PCP Prescriptions: New oxycodone 5 mg tablet 5 mg PO Q6H PRN (Reason: pain) Qty: 20 0RF Rx Instructions: Partial Fill upon patient request. gabapentin 300 mg capsule 300 mg PO BID Qty: 60 0RF No Action ondansetron HCl [Zofran] 4 mg tablet 4 mg PO Q8H PRN (Reason: nausea and vomiting) Qty: 7 0RF ketorolac 10 mg tablet 10 mg PO Q6H PRN (Reason: pain) 5 Days Qty: 20 0RF Rx Instructions: Patient received Toradol in the emergency room. cyclobenzaprine 10 mg tablet 10 mg PO BEDTIME PRN (Reason: muscle spasm) Qty: 7 0RF ketorolac 10 mg tablet 10 mg PO TID PRN (Reason: pain) 5 Days Qty: 15 0RF lidocaine 5 % adhesive patch,medicated 1 patch topical DAILY PRN (Reason: pain) Qty: 15 0RF Rx Instructions: leave on most painful area for up to 12 hrs oxycodone 5 mg tablet 5 mg PO Q6H PRN (Reason: pain) Qty: 14 0RF Rx Instructions: Partial Fill upon patient request. mupirocin 2 % ointment 1 appl topical TID Qty: 22 0RF cephalexin 500 mg capsule 500 mg PO QID 10 Days Qty: 40 0RF diphenhydramine HCl 50 mg capsule 50 mg PO Q8H PRN (Reason: itching) Qty: 12 0RF oxycodone 5 mg tablet 5 mg PO Q6H PRN (Reason: pain) Qty: 10 0RF Rx Instructions: Partial Fill upon patient request. acetaminophen [Tylenol Extra Strength] 500 mg tablet 1,000 mg PO Q8H PRN (Reason: pain) Qty: 30 0RF prednisone 20 mg tablet 40 mg PO DAILY 5 Days Qty: 10 0RF gabapentin 300 mg capsule 300 mg PO DAILY Qty: 20 0RF quetiapine 400 mg tablet extended release 24 hr 400 mg PO BEDTIME clonazepam 2 mg tablet 2 mg PO BID mirtazapine 30 mg tablet 30 mg PO BEDTIME acetaminophen 500 mg tablet 500 mg PO Q8H PRN pantoprazole 40 mg tablet,delayed release (DR/EC) 40 mg PO DAILY Qty: 30 6RF Interventions: BENOIT Worksheet Last Done: 06/11/24 20:49 Print Language: Chinese
[2024-06-12] MEDS: Morphine Sulfate Immed Release 15 MG TABLET PO (01:27)
[2024-06-12 01:30] VITALS: BP 197/131; PULSE 106; RESP 20; TEMP 37.3; O2SAT 98
== END 2024-06-12 01:32 | disposition home or self-care (01) ==
PROVIDERS: Emergency Provider Internal Medicine; PCP Internal Medicine Geriatric Medicine
DX: B02.29 Other postherpetic nervous system involvement (principal)
CPT/HCPCS: 99283

== ENCOUNTER 2024-07-07 19:12 | Emergency (ER) | payer MEDICAID, SELFPAY ==
--- NOTE | ~2024-07-07 | XR_ITS ---
EXAMINATION: XR FINGER, LEFT CLINICAL INFORMATION: Third MCP pain and swelling COMPARISON: None available. TECHNIQUE: Single view hand with 2 additional of the left third digit. FINDINGS: Degenerative changes are seen at the first CMC joint. No other abnormalities are seen. No fractures or dislocations XR/XR finger LT min 2V IMPRESSION: Degenerative changes at the first CMC joint. Electronically signed by: Harpreet Marks MD 07/07/2024 10:49 PM EDT
--- NOTE | 2024-07-07 19:41 | ED.GENADULT ---
HPI - General Adult General Chief complaint: Extremity Injury, Upper Stated complaint: left hand swollen Time Seen by Provider: 07/07/24 21:03 Source: patient Mode of arrival: ambulatory Limitations: no limitations History of Present Illness ED Provider: Anupama OQUENDO HPI narrative: This is a 54 year old female presents w/ left hand pain since last night patient reports she attempted to flick someone and since then has been having pain and swelling. Pain is worse w/ movment and better at rest. No blunt trauma. No numbness or tingling. Denies fevers, chills. Related Data Home Medications ?Medication ?Instructions ?Recorded ?Confirmed acetaminophen 500 mg tablet 500 mg PO Q8H PRN 01/14/22 clonazepam 2 mg tablet 2 mg PO BID 01/14/22 mirtazapine 30 mg tablet 30 mg PO BEDTIME 01/14/22 quetiapine 400 mg tablet,extended 400 mg PO BEDTIME 01/14/22 release 24 hr Previous Rx's ?Medication ?Instructions ?Recorded ketorolac 10 mg tablet 10 mg PO Q6H PRN pain 5 days #20 09/21/21 tabs ondansetron HCl 4 mg tablet 4 mg PO Q8H PRN nausea and 09/21/21 (Zofran) vomiting #7 tabs pantoprazole 40 mg tablet,delayed 40 mg PO DAILY #30 tabs 01/14/22 release cyclobenzaprine 10 mg tablet 10 mg PO BEDTIME PRN muscle spasm 04/11/23 #7 tabs ketorolac 10 mg tablet 10 mg PO TID PRN pain 5 days #15 04/11/23 tabs lidocaine 5 % topical patch 1 patch topical DAILY PRN pain #15 04/11/23 ea acetaminophen 500 mg tablet 1,000 mg (2 x 500 mg) PO Q8H PRN 05/29/24 (Tylenol Extra Strength) pain #30 tabs gabapentin 300 mg capsule 300 mg PO DAILY #20 caps 05/29/24 oxycodone 5 mg tablet 5 mg PO Q6H PRN pain #10 tabs 05/29/24 prednisone 20 mg tablet 40 mg (2 x 20 mg) PO DAILY 5 days 05/29/24 #10 tabs cephalexin 500 mg capsule 500 mg PO QID 10 days #40 caps 06/09/24 diphenhydramine HCl 50 mg capsule 50 mg PO Q8H PRN itching #12 caps 06/09/24 mupirocin 2 % topical ointment 1 appl topical TID #22 grams 06/09/24 oxycodone 5 mg tablet 5 mg PO Q6H PRN pain #14 tabs 06/09/24 gabapentin 300 mg capsule 300 mg PO BID #60 caps 06/12/24 oxycodone 5 mg tablet 5 mg PO Q6H PRN pain #20 tabs 06/12/24 ketorolac 10 mg tablet 10 mg PO TID PRN pain 5 days #15 07/07/24 tabs Allergies Allergy/AdvReac Type Severity Reaction Status Date / Time No Known Allergies Allergy Verified 07/07/24 19:44 [No Known Allergies*] Review of Systems Review of Systems: Yes all other systems are reviewed and are negative FORMERLY [facility] Past Medical History Attestation statement: The following information was validated with the patient. Source: old records reviewed and nursing notes reviewed Social History Social History Advance Directives: No Advance Directives Information Provided: No Do you have a plan to hurt others: No Plan Physical Exam ED Vital Signs: Vital Signs - 24 hr 07/07/24 19:42 Temperature 98.0 F Pulse Rate 103 H Respiratory Rate 14 Blood Pressure 178/104 H Pulse Oximetry 99 Oxygen Delivery Method Room Air BMI result Body Mass Index 22.1 Tachycardic and hypertensive likely secondary to pain Appearance: Alert.? Oriented X3.? No acute distress.? Head: Normocephalic, atraumatic, no step-offs or deformities Eyes: Pupils equal, round and reactive to light.? ENT: Pharynx normal.? Neck: Normal inspection.? Neck supple.? CVS: Pulses normal.? Respiratory: No respiratory distress. Skin: Skin warm and dry.? Normal skin color.? Normal skin turgor.? Extremities: No lower extremity edema.? No calf ttp. 5/5 strength to bilateral upper and lower extremities. + swelling to the dorsal aspect overlying the extensor digitorum tendons of the L hand tendons. TTP to dorsal aspect of L hand. 2+ radial pulses. Normal distal sensation b/l. No wrist drop b/l. Normal cap refil < 2 seconds b/l. Patient able to wiggle all her fingers however with slight discomfort. Flexion and extension are both uncomfortable however able to do flexion and extension bilaterally of fingers and wrist. Neuro: Oriented X 3.? No motor deficit.? No sensory deficit. CN 2-12 intact Course Course Course Narrative: Patient is a 54-year-old female right-hand dominant presenting to emergency department for evaluation of pain and swelling over the dorsum of the left hand involving primarily the 3rd MCP. States that she went to flick her finger at someone when she felt suddenly pain and inability to do so, has subsequent swelling and erythema now, mild decreased flexion of the digit, finger is held in extension. Denies any additional injury recently. Denies fevers or chills. Reevaluation(s) Reevaluation #1: X-ray pending however shared images with ortho. Amadou Delgado recommends alexandre tape and no heavy lifting more than a cell phone/coffee cup. Limit gripping. No signs of complete tear based off of history Will have her follow up outpatient Time: 21:19 Medical Decision Making Medical Decision Making MDM Narrative: 54-year-old female presents with left hand pain and swelling since yesterday status post trying to flick somebody Physical exam there is swelling to the dorsal aspect overlying the extensor digitorum tendons of the hand tendons. Please refer to images in the chart. History and physical exam concerning for extensor digitorum strain versus rupture. No signs of septic joint or threat to limb. Unlikely arterial or venous occlusion. Plan x-ray will reach out to ortho for input Differential Diagnosis Differential Diagnoses: The differential diagnosis associated with the presentation includes History and physical exam concerning for extensor digitorum strain versus rupture. No signs of septic joint or threat to limb. Unlikely arterial or venous occlusion. Admission/Observation Consideration of admission/observation: Escalation of care including admission/observation considered Unlikely Consult Healthcare Provider Management of the patient was discussed with: Manufacturing Accountant (Amadou Delgado recommends alexandre tape and no heavy lifting more than a cell phone/coffee cup. Limit ripping. No signs of complete tear based off of history) Independent Interpretation I performed an independent interpretation of an: Plain X-Ray Radiology Impression Discussion of test interpretation with radiology: I have reviewed the radiologist's reading. External Record Review External record reviewed: Office record, Outpatient record and Prior outpatient labs Chronic Conditions Patient?s care impacted by: Other (PTSD, hypertension, bipolar) Social Determinants Patient?s care significantly limited by Social Determinants of Health including: Low income, Problems related to employment and Other Social Determinant of Health Critical Care Time Critical Care Time Critical Care Time: Yes Total Critical Care Time: 35 Attestation: I attest to this time spent taking care of the patient, obtaining history, physical, reviewing labs, imaging, treatment of patients condition +/- specialist/hospitalist consult Discharge Plan Discharge Clinical Impression: Strain of extensor digitorum tendon Patient Disposition: Home, Self-Care Instructions: Muscle Strain (ED), Tendon Rupture (ED) Additional Instructions: Take your medications as prescribed. If you were prescribed antibiotics today, it is important that you take your medication to their entirety, do not skip any doses, do not finish them early. Follow-up with your primary care provider this week. Return to the emergency department with new or worsening symptoms. Such as fevers, chills, chest pain, shortness of breath, nausea, vomiting, dizziness, headache, vision changes, lethargy In case of emergency call 911 There is a possibility he may have ruptured your tendon near hand. Please follow-up with the orthopedic team as soon as possible. Toradol has been sent to your pharmacy, you tolerated this well in the department. Please take this as prescribed do not take this with ibuprofen, or other NSAIDs, do not mix this with alcohol. Side effects of this medication including increased risk for bleeding and possible kidney injury. Prescriptions: New ketorolac 10 mg tablet 10 mg PO TID PRN (Reason: pain) 5 Days Qty: 15 0RF Rx Instructions: Tolerated IM or IV in department No Action ondansetron HCl [Zofran] 4 mg tablet 4 mg PO Q8H PRN (Reason: nausea and vomiting) Qty: 7 0RF ketorolac 10 mg tablet 10 mg PO Q6H PRN (Reason: pain) 5 Days Qty: 20 0RF Rx Instructions: Patient received Toradol in the emergency room. cyclobenzaprine 10 mg tablet 10 mg PO BEDTIME PRN (Reason: muscle spasm) Qty: 7 0RF ketorolac 10 mg tablet 10 mg PO TID PRN (Reason: pain) 5 Days Qty: 15 0RF lidocaine 5 % adhesive patch,medicated 1 patch topical DAILY PRN (Reason: pain) Qty: 15 0RF Rx Instructions: leave on most painful area for up to 12 hrs oxycodone 5 mg tablet 5 mg PO Q6H PRN (Reason: pain) Qty: 14 0RF Rx Instructions: Partial Fill upon patient request. mupirocin 2 % ointment 1 appl topical TID Qty: 22 0RF cephalexin 500 mg capsule 500 mg PO QID 10 Days Qty: 40 0RF diphenhydramine HCl 50 mg capsule 50 mg PO Q8H PRN (Reason: itching) Qty: 12 0RF oxycodone 5 mg tablet 5 mg PO Q6H PRN (Reason: pain) Qty: 20 0RF Rx Instructions: Partial Fill upon patient request. gabapentin 300 mg capsule 300 mg PO BID Qty: 60 0RF oxycodone 5 mg tablet 5 mg PO Q6H PRN (Reason: pain) Qty: 10 0RF Rx Instructions: Partial Fill upon patient request. acetaminophen [Tylenol Extra Strength] 500 mg tablet 1,000 mg PO Q8H PRN (Reason: pain) Qty: 30 0RF prednisone 20 mg tablet 40 mg PO DAILY 5 Days Qty: 10 0RF gabapentin 300 mg capsule 300 mg PO DAILY Qty: 20 0RF quetiapine 400 mg tablet extended release 24 hr 400 mg PO BEDTIME clonazepam 2 mg tablet 2 mg PO BID mirtazapine 30 mg tablet 30 mg PO BEDTIME acetaminophen 500 mg tablet 500 mg PO Q8H PRN pantoprazole 40 mg tablet,delayed release (DR/EC) 40 mg PO DAILY Qty: 30 6RF Referrals: [facility] [place] [Provider Group] - 2 days Name,MD Orion [Primary Care Provider] - 2 days Print Language: Yoruba
[2024-07-07 19:42] VITALS: BP 178/104; PULSE 103; RESP 14; TEMP 36.7; O2SAT 99; BMI 22.1
[2024-07-07] MEDS: Ketorolac Tromethamine 30 MG/ML VIAL IM (21:20)
[2024-07-07 21:32] VITALS: BP 180/90; PULSE 88; RESP 20; TEMP 36.6; O2SAT 99
[2024-07-07 21:42] VITALS: BP 180/90; PULSE 88; RESP 20; TEMP 36.7; O2SAT 99
== END 2024-07-07 21:43 | disposition home or self-care (01) ==
PROVIDERS: Emergency Provider Emergency Medicine Emergency Medical Services; PCP Internal Medicine Geriatric Medicine
DX: S66.123A Laceration of flexor muscle, fascia and tendon of left middle finger at wrist and hand level, initial encounter (principal); X50.9XXA Other and unspecified overexertion or strenuous movements or postures, initial encounter; Y93.89 Activity, other specified; Y92.9 Unspecified place or not applicable; Y99.9 Unspecified external cause status; S66.120A Laceration of flexor muscle, fascia and tendon of right index finger at wrist and hand level, initial encounter
CPT/HCPCS: 73140; 96372; 99284; J1885

== ENCOUNTER 2024-07-29 17:47 | Emergency (ER) | payer MEDICAID, SELFPAY ==
[2024-07-29 18:08] VITALS: BP 147/96; PULSE 100; RESP 19; TEMP 36.6; O2SAT 98; BMI 22.2
--- NOTE | 2024-07-29 18:08 | ED_ITS ---
HPI - General Adult General Chief complaint: Eye Problems Stated complaint: LT eye redness and irritation Time Seen by Provider: 07/29/24 21:44 Source: patient Mode of arrival: ambulatory Limitations: no limitations History of Present Illness ED Provider: darius BREWER narrative: Patient's history of iritis last year comes here for similar redness started yesterday in the left eye very light sensitive no fall injury no vision loss no purulent discharge also complaining of left shoulder pain which started 2 days ago without any known injury Related Data Home Medications ?Medication ?Instructions ?Recorded ?Confirmed acetaminophen 500 mg tablet 500 mg PO Q8H PRN 01/14/22 clonazepam 2 mg tablet 2 mg PO BID 01/14/22 mirtazapine 30 mg tablet 30 mg PO BEDTIME 01/14/22 quetiapine 400 mg tablet,extended 400 mg PO BEDTIME 01/14/22 release 24 hr Previous Rx's ?Medication ?Instructions ?Recorded ketorolac 10 mg tablet 10 mg PO Q6H PRN pain 5 days #20 09/21/21 tabs ondansetron HCl 4 mg tablet 4 mg PO Q8H PRN nausea and 09/21/21 (Zofran) vomiting #7 tabs pantoprazole 40 mg tablet,delayed 40 mg PO DAILY #30 tabs 01/14/22 release cyclobenzaprine 10 mg tablet 10 mg PO BEDTIME PRN muscle spasm 04/11/23 #7 tabs ketorolac 10 mg tablet 10 mg PO TID PRN pain 5 days #15 04/11/23 tabs lidocaine 5 % topical patch 1 patch topical DAILY PRN pain #15 04/11/23 ea acetaminophen 500 mg tablet 1,000 mg (2 x 500 mg) PO Q8H PRN 05/29/24 (Tylenol Extra Strength) pain #30 tabs gabapentin 300 mg capsule 300 mg PO DAILY #20 caps 05/29/24 oxycodone 5 mg tablet 5 mg PO Q6H PRN pain #10 tabs 05/29/24 prednisone 20 mg tablet 40 mg (2 x 20 mg) PO DAILY 5 days 05/29/24 #10 tabs cephalexin 500 mg capsule 500 mg PO QID 10 days #40 caps 06/09/24 diphenhydramine HCl 50 mg capsule 50 mg PO Q8H PRN itching #12 caps 06/09/24 mupirocin 2 % topical ointment 1 appl topical TID #22 grams 06/09/24 oxycodone 5 mg tablet 5 mg PO Q6H PRN pain #14 tabs 06/09/24 gabapentin 300 mg capsule 300 mg PO BID #60 caps 06/12/24 oxycodone 5 mg tablet 5 mg PO Q6H PRN pain #20 tabs 06/12/24 ketorolac 10 mg tablet 10 mg PO TID PRN pain 5 days #15 07/07/24 tabs ibuprofen 600 mg tablet 600 mg PO Q6H PRN fever or pain 07/29/24 #30 tabs prednisolone acetate 1 % eye 1 drp ophthalmic (eye) Q6H #5 mL 07/29/24 drops,suspension tobramycin 0.3 % eye drops 1 drp ophthalmic-Left Q4H #5 mL 07/29/24 Allergies Allergy/AdvReac Type Severity Reaction Status Date / Time No Known Allergies Allergy Verified 07/29/24 18:10 [No Known Allergies*] Review of Systems Review of Systems: Yes all other systems are reviewed and are negative FORMERLY [facility] Social History Social History Advance Directives: No Advance Directives Information Provided: No Do you have a plan to hurt others: No Plan Physical Exam ED Vital Signs: Vital Signs - 24 hr 07/29/24 18:08 07/29/24 20:28 Temperature 98 F 97.8 F Pulse Rate 100 100 Respiratory Rate 19 18 Blood Pressure 147/96 H 150/98 H Pulse Oximetry 98 98 Oxygen Delivery Method Room Air Room Air BMI result Body Mass Index 22.2 Appearance: Alert. Oriented X3. No acute distress. Eyes: PERRLA, No Nystagmus diffuse injection of palpabral conjunctiva pupil size normal reaction to light no redness of the iris periphery vision is normal no foreign body seen no corneal abrasion ENT: Pharynx normal. Oral Mucosa moist Neck: Normal inspection. Neck supple. CVS: Normal heart rate and rhythm. Pulses normal. Respiratory: No respiratory distress. Equal air entry bilateral, no wheezing/rales/rhonchi Abdomen: Soft and nontender. Bowel sounds are present, no mass palpable, no CVA tenderness Skin: Skin warm and dry. Normal skin color. Normal skin turgor. Extremities: No lower extremity edema. No calf tenderness left shoulder diffuse tenderness in noted to muscles area painful to abduct no vascular intact Neuro: Oriented X 3. No motor deficit. No sensory deficit.No cerebellar signs , cranial nerves II-XII intact Course Course Course Narrative: RME performed by Viviana Perez PA-C. Patient is a 54 year old assigned female at presenting to the emergency department with left shoulder pain and left eye pain. Patient states over the last few days she has had left eye pain / swelling and left hand pain that radiates into the left shoulder. Patient states that she was seen here for the hand and told it was a tendon issue but her doctor can't see her for another 2 weeks. Detailed physical exam and review of systems are deferred to the cadd manager. Patient placed back in the waiting room pending room availability. Medical Decision Making Medical Decision Making MDM Narrative: Patient with severe inflammatory conjunctivitis no clear signs of iritis at this time patient is a dilated and no redness in the periphery of the iris patient was prescribed prednisolone last year when she had similar reaction will do same advised to use it only for 2 days and recheck by phys asst or comes to the ER also prescribed tobramycin eye drops Differential Diagnosis Differential Diagnoses: The differential diagnosis associated with the presentation includes Iritis/uveitis/conjunctivitis Discharge Plan Discharge Clinical Impression: Acute conjunctivitis, Tendinitis of left rotator cuff Patient Disposition: Home, Self-Care Instructions: Rotator Cuff Tendinitis (ED), Conjunctivitis (ED) Additional Instructions: Use tobramycin eyedrops 1 drop every 4 hours in your left eye till clear Prednisolone eyedrops 1 drop 4 times a day for 2 days Follow with eye doctor in 2 days or report to ER if not better Ibuprofen for left shoulder pain Prescriptions: New ibuprofen 600 mg tablet 600 mg PO Q6H PRN (Reason: fever or pain) Qty: 30 0RF tobramycin 0.3 % drops 1 drp ophthalmic-Left Q4H Qty: 5 0RF prednisolone acetate 1 % drops,suspension 1 drp ophthalmic (eye) Q6H Qty: 5 0RF No Action ondansetron HCl [Zofran] 4 mg tablet 4 mg PO Q8H PRN (Reason: nausea and vomiting) Qty: 7 0RF ketorolac 10 mg tablet 10 mg PO Q6H PRN (Reason: pain) 5 Days Qty: 20 0RF Rx Instructions: Patient received Toradol in the emergency room. cyclobenzaprine 10 mg tablet 10 mg PO BEDTIME PRN (Reason: muscle spasm) Qty: 7 0RF ketorolac 10 mg tablet 10 mg PO TID PRN (Reason: pain) 5 Days Qty: 15 0RF lidocaine 5 % adhesive patch,medicated 1 patch topical DAILY PRN (Reason: pain) Qty: 15 0RF Rx Instructions: leave on most painful area for up to 12 hrs oxycodone 5 mg tablet 5 mg PO Q6H PRN (Reason: pain) Qty: 14 0RF Rx Instructions: Partial Fill upon patient request. mupirocin 2 % ointment 1 appl topical TID Qty: 22 0RF cephalexin 500 mg capsule 500 mg PO QID 10 Days Qty: 40 0RF diphenhydramine HCl 50 mg capsule 50 mg PO Q8H PRN (Reason: itching) Qty: 12 0RF oxycodone 5 mg tablet 5 mg PO Q6H PRN (Reason: pain) Qty: 20 0RF Rx Instructions: Partial Fill upon patient request. gabapentin 300 mg capsule 300 mg PO BID Qty: 60 0RF oxycodone 5 mg tablet 5 mg PO Q6H PRN (Reason: pain) Qty: 10 0RF Rx Instructions: Partial Fill upon patient request. acetaminophen [Tylenol Extra Strength] 500 mg tablet 1,000 mg PO Q8H PRN (Reason: pain) Qty: 30 0RF prednisone 20 mg tablet 40 mg PO DAILY 5 Days Qty: 10 0RF gabapentin 300 mg capsule 300 mg PO DAILY Qty: 20 0RF ketorolac 10 mg tablet 10 mg PO TID PRN (Reason: pain) 5 Days Qty: 15 0RF Rx Instructions: Tolerated IM or IV in department quetiapine 400 mg tablet extended release 24 hr 400 mg PO BEDTIME clonazepam 2 mg tablet 2 mg PO BID mirtazapine 30 mg tablet 30 mg PO BEDTIME acetaminophen 500 mg tablet 500 mg PO Q8H PRN pantoprazole 40 mg tablet,delayed release (DR/EC) 40 mg PO DAILY Qty: 30 6RF Referrals: Barry Marie [Physician] - 2 days Print Language: Arabic
[2024-07-29 20:28] VITALS: BP 150/98; PULSE 100; RESP 18; TEMP 36.6; O2SAT 98
[2024-07-29] MEDS: Fluorescein Sodium STRIP 1 STRIP EYE-LEFT (23:28)
[2024-07-29] MEDS: Tetracaine HCl/PF 0.5% Oph Sol 4 ML DROPS 1 DROP EYE-LEFT (23:29)
[2024-07-29] MEDS: prednisoLONE Acetate 1 % Oph Susp 5 ML DRPBTL 1 DROP EYE-LEFT (23:29)
[2024-07-29] MEDS: Tobramycin Sulfate 0.3% Sol Op 5 ML BTL 2 DROP EYE-LEFT (23:29)
[2024-07-29 23:30] VITALS: BP 150/98; PULSE 100; RESP 18; TEMP 36.6; O2SAT 98
== END 2024-07-29 23:30 | disposition home or self-care (01) ==
PROVIDERS: Emergency Provider Internal Medicine
DX: H10.32 Unspecified acute conjunctivitis, left eye (principal); M75.32 Calcific tendinitis of left shoulder; Z79.899 Other long term (current) drug therapy
CPT/HCPCS: 99283

== ENCOUNTER 2024-08-31 13:41 | Emergency (ER) | payer MEDICAID, SELFPAY ==
--- NOTE | ~2024-08-31 | US_ITS ---
EXAMINATION: US NECK CLINICAL INFORMATION: Painful lump under chin. COMPARISON: None available. TECHNIQUE: Linear transducer mazariegos-scale and color Doppler examination with attention to the region of clinical concern FINDINGS: There is a unremarkable submental lymph node seen measuring 1.2 x 0.6 x 0.9 cm an abnormal mass or fluid collection is not seen. US/US soft tiss head and/or neck IMPRESSION: Unremarkable submental lymph node. Electronically signed by: Harpreet Marks MD 08/31/2024 05:21 PM [facility]
--- NOTE | ~2024-08-31 | XR_ITS ---
EXAMINATION: XR CHEST CLINICAL INFORMATION: Chest pain. Shortness of breath. COMPARISON: None available. TECHNIQUE: 2 views of the chest were obtained. FINDINGS: No consolidation, pleural effusion or pneumothorax. Cardiomediastinal silhouette is normal. Calcified plaque aortic arch. Osseous structures are intact. XR/XR chest 2V IMPRESSION: No acute airspace disease. Electronically signed by: Felipe Smith MD 08/31/2024 03:52 PM [facility]
[2024-08-31 14:09] VITALS: BP 162/111; PULSE 92; RESP 18; TEMP 36.8; O2SAT 98; BMI 23.5
--- NOTE | 2024-08-31 14:14 | ECG_ITS ---
Test Reason : chest pain Blood Pressure : / mmHG Vent. Rate : 088 BPM Atrial Rate : 088 BPM P-R Int : 148 ms QRS Dur : 082 ms QT Int : 380 ms P-R-T Axes : 057 065 049 degrees QTc Int : 459 ms Normal sinus rhythm Possible Left atrial enlargement Nonspecific T wave abnormality Abnormal ECG No previous ECGs available Referred By: Generic ED Physician Electronically Signed By:ARMOND VELAZCO MD
[2024-08-31 14:33] LABS: MANUAL DIFF FLAG NO
[2024-08-31 14:36] LABS: Basophils Percent Auto 0.3 % (0-2); Eosinophils Absolute Auto 0.4 X10*3/uL (0.0-0.4); Eosinophils Percent Auto 5.2 % (0-4); Hematocrit 39.5 % (37.0-47.0); Hemoglobin 12.2 g/dl (12.0-16.0); Imm Gran Abs Auto 0.01 X10*3/uL (0.00-0.03); Imm Gran Pct Auto 0.1 % (0.0-0.4); Lymphocytes Absolute Auto 2.6 X10*3/uL (1.2-4.9); Lymphocytes Percent Auto 37.9 % (20-40); Mean Corpuscular HGB Conc 30.9 g/dl (31.0-35.0); Mean Corpuscular Volume 93.8 fL (80.0-98.0); Mean Platelet Volume 10.2 fL (9.4-12.3); Monocytes Absolute Auto 0.8 X10*3/uL (0.1-1.2); Monocytes Percent Auto 12.2 % (2-11); Neutrophils Percent Auto 44.3 % (45-73); Platelet Count 270 X10*3/uL (160-400); Red Blood Count 4.21 X10*6/uL (4.20-5.50); Red Cell Distribution Width 12.8 % (11.0-16.0); White Blood Count 6.9 X10*3/uL (4.8-10.8)
[2024-08-31 14:55] LABS: Alanine Aminotransferase 21 U/L (0-31); Albumin Level 4.2 g/dL (3.5-5.0); Alkaline Phosphatase 109 U/L (39-117); Anion Gap 12 (12-20); Aspartate Amino Transferase 19 U/L (5-31); Bilirubin Total 0.2 mg/dL (0.0-1.0); Blood Urea Nitrogen 16 mg/dL (9-16); Calcium 9.4 mg/dL (8.4-10.2); Carbon Dioxide 30 mmol/L (22-29); Chloride 104 mmol/L (96-108); Creatinine Clr Calc Pharmacy 61.9; Estimated Glomerular Filt Rate > 60; Glucose Random 115 mg/dL (60-115); Potassium 3.8 mmol/L (3.3-5.1); Sodium 142 mmol/L (135-145)
[2024-08-31 15:10] LABS: Troponin-I High Sensitivity < 2.7 ng/L (<3.5-17.0)
[2024-08-31 16:15] VITALS: BP 161/91; PULSE 95; RESP 18; O2SAT 98
[2024-08-31] MEDS: Ketorolac Tromethamine 30 MG/ML VIAL IM (16:58)
--- NOTE | 2024-08-31 17:19 | ED_ITS ---
HPI - Chest Pain General Chief Complaint: Chest Pain Stated Complaint: shoulder pain Time Seen by Provider: 08/31/24 16:10 Source: patient, RN notes reviewed and old records reviewed Mode of arrival: ambulatory Limitations: no limitations History of Present Illness ED Provider: Fauzia HPI narrative: 54-year-old female past medical history significant for bipolar disorder, PTSD, anxiety, depression, hypertension, chronic shoulder pain and back pain presents for evaluation of left arm pain Patient reports that her radiates down to her left arm that she has had for several weeks Her pain is worse with movement and she has difficulty lifting heavy objects with her left arm Denies any falls, trauma or injuries to the left arm Denies any neck pain She currently denies any chest pain but states that she did have some yesterday Denies any history of coronary artery disease She does report a history of hypertension She also states that her son about 6 months ago and she has had a tough time dealing with this Furthermore, the patient reports a lump under her chin that has been present for about 2 weeks Denies any swelling in her mouth or mouth pain She reports that she is a smoker Related Data Home Medications ?Medication ?Instructions ?Recorded ?Confirmed acetaminophen 500 mg tablet 500 mg PO Q8H PRN 01/14/22 clonazepam 2 mg tablet 2 mg PO BID 01/14/22 mirtazapine 30 mg tablet 30 mg PO BEDTIME 01/14/22 quetiapine 400 mg tablet,extended 400 mg PO BEDTIME 01/14/22 release 24 hr Previous Rx's ?Medication ?Instructions ?Recorded ketorolac 10 mg tablet 10 mg PO Q6H PRN pain 5 days #20 09/21/21 tabs ondansetron HCl 4 mg tablet 4 mg PO Q8H PRN nausea and 09/21/21 (Zofran) vomiting #7 tabs pantoprazole 40 mg tablet,delayed 40 mg PO DAILY #30 tabs 01/14/22 release cyclobenzaprine 10 mg tablet 10 mg PO BEDTIME PRN muscle spasm 04/11/23 #7 tabs ketorolac 10 mg tablet 10 mg PO TID PRN pain 5 days #15 04/11/23 tabs lidocaine 5 % topical patch 1 patch topical DAILY PRN pain #15 04/11/23 ea acetaminophen 500 mg tablet 1,000 mg (2 x 500 mg) PO Q8H PRN 05/29/24 (Tylenol Extra Strength) pain #30 tabs gabapentin 300 mg capsule 300 mg PO DAILY #20 caps 05/29/24 oxycodone 5 mg tablet 5 mg PO Q6H PRN pain #10 tabs 05/29/24 prednisone 20 mg tablet 40 mg (2 x 20 mg) PO DAILY 5 days 05/29/24 #10 tabs cephalexin 500 mg capsule 500 mg PO QID 10 days #40 caps 06/09/24 diphenhydramine HCl 50 mg capsule 50 mg PO Q8H PRN itching #12 caps 06/09/24 mupirocin 2 % topical ointment 1 appl topical TID #22 grams 06/09/24 oxycodone 5 mg tablet 5 mg PO Q6H PRN pain #14 tabs 06/09/24 gabapentin 300 mg capsule 300 mg PO BID #60 caps 06/12/24 oxycodone 5 mg tablet 5 mg PO Q6H PRN pain #20 tabs 06/12/24 ketorolac 10 mg tablet 10 mg PO TID PRN pain 5 days #15 07/07/24 tabs ibuprofen 600 mg tablet 600 mg PO Q6H PRN fever or pain 07/29/24 #30 tabs prednisolone acetate 1 % eye 1 drp ophthalmic (eye) Q6H #5 mL 07/29/24 drops,suspension tobramycin 0.3 % eye drops 1 drp ophthalmic-Left Q4H #5 mL 07/29/24 Allergies Allergy/AdvReac Type Severity Reaction Status Date / Time No Known Allergies Allergy Verified 08/31/24 14:14 [No Known Allergies*] Review of Systems 2 Constitutional: Constitutional: Denies body ache(s), Denies chills and Denies fever(s) Eyes: Eyes: Denies blurry vision ENT: Denies vertigo, Denies dizziness, Denies mouth lesions, Reports neck mass, Denies neck pain, Denies odynophagia, Denies sinus pain, Denies sinus pressure and Denies sore throat Cardiovascular: Cardiovascular: Reports chest pain, Denies chest pain at rest and Denies dyspnea Respiratory: Respiratory: Denies cough and Denies dyspnea Gastrointestinal: Gastrointestinal: Denies abdominal pain, Denies nausea, Denies odynophagia and Denies vomiting Musculoskeletal: Musculoskeletal: Reports arthralgias, Denies joint swelling, Reports limited range of motion, Reports muscle cramps and Denies neck pain Integumentary/Breasts: Skin/Breast: Denies rash Neurologic: Denies vertigo and Denies dizziness Psychiatric: Psychiatric: Denies anxiety PMFSH Social History Social History Advance Directives: No Advance Directives Information Provided: No Do you have a plan to hurt others: No Plan Physical Exam 2 Vital Signs: Vital Signs: Last Vital Signs Temp 98.2 F 08/31/24 14:09 Pulse 95 08/31/24 16:15 Resp 18 08/31/24 16:15 BP 161/91 H 08/31/24 16:15 Pulse Ox 98 08/31/24 16:15 O2 Del Method Room Air, Blow By 08/31/24 16:15 BMI result Body Mass Index 23.5 Const: General: healthy appearing, comfortable, no acute distress, alert and awake Nutritional Appearance: well nourished Orientation/consciousness: p atient oriented x3 HEENT: Other: There is a firm, well demarcated round, 2 cm mass in the left submental space. No overlying skin changes, erythema or open wounds Head: Yes normocephalic and Yes atraumatic Eyes: Eyelids: Yes eyelids normal Conjunctivae: conjunctivae normal S clerae: sclerae normal Corneas: corneas normal Pupils: Equal, round and reactive pupils present EOM: EOMs intact bilaterally Neck: Neck: Yes full ROM Resp: Effort & Inspection: normal respiratory effort, able to speak in complete sentences and not labored Cardio: Rate: regular rate Rhythm: regular rhythm Skin: General skin exam: elasticity normal Neuro: General: patient oriented x3 Cranial nerves: Yes Equal, round and reactive pupils present and Yes Bilaterally intact EOM present Cognition (Neuro): normal cognition Extrem: Other: Obvious deformity to the left upper extremity. The patient does have tenderness over the left acromioclavicular joint. No crepitus with passive range of motion. No edema, tenderness to left elbow. She has full range of motion in the left shoulder, elbow and wrist. Radial pulses 2+ and equal Medications Administered Discontinued Medications Generic Name Dose Route Start Last Admin Trade Name Freq PRN Reason Stop Dose Admin Ketorolac Tromethamine 30 mg 08/31/24 16:20 08/31/24 16:58 Ketorolac Tromethamine 30 Mg/Ml Vial IM 08/31/24 16:21 30 mg ONCE ONE Administration Medical Decision Making Medical Decision Making [facility] Narrative: 54-year-old female with past medical history as documented above presents for evaluation of intermittent chest pain and left shoulder pain. She also has a lump under her chin. The patient's only risk factor for ACS is hypertension and tobacco dependence. Her EKG shows normal sinus rhythm with a rate of [address] segment elevation or depressions. Chest x-ray shows no focal infiltrates or effusions. Troponin is negative despite several days of chest pain, she rules out for ACS. I ordered an ultrasound to evaluate the mass under her left chin. This revealed a 1.2 cm submental lymph node. Differential Diagnosis Differential Diagnoses: The differential diagnosis associated with the presentation includes Chest pain ACS less likely Anxiety Arthritis Costochondritis Lab Data [facility] Lab Attestation statement: I reviewed the patient's lab results. No leukocytosis or anemia. Normal platelet count. No electrolyte abnormalities. 08/31/24 14:27 08/31/24 14:27 Labs: Lab Results 08/31/24 Range/Units 14:27 WBC 6.9 (4.8-10.8) X10*3/uL RBC 4.21 (4.20-5.50) X10*6/uL Hgb 12.2 (12.0-16.0) g/dl Hct 39.5 (37.0-47.0) % MCV 93.8 (80.0-98.0) fL MCH 29.0 (27.0-33.0) pg MCHC 30.9 L (31.0-35.0) g/dl RDW 12.8 (11.0-16.0) % Plt Count 270 (160-400) X10*3/uL MPV 10.2 (9.4-12.3) fL Immature Gran % (Auto) 0.1 (0.0-0.4) % Neut % (Auto) 44.3 L (45-73) % Lymph % (Auto) 37.9 (20-40) % Storey % (Auto) 12.2 H (2-11) % Eos % (Auto) 5.2 H (0-4) % Baso % (Auto) 0.3 (0-2) % Lymph # (Auto) 2.6 (1.2-4.9) X10*3/uL Storey # (Auto) 0.8 (0.1-1.2) X10*3/uL Eos # (Auto) 0.4 (0.0-0.4) X10*3/uL Baso # (Auto) 0.0 (0.0-0.2) X10*3/uL Abs Immat Gran (auto) 0.01 (0.00-0.03) X10*3/uL Absolute Neuts (auto) 3.0 (2.0-8.3) x10*3/uL Absolute Nucleated RBC 0.000 (0.0-0.012) X10*3/uL Nucleated RBC % (auto) 0.0 (0.0-0.2) /100WBC Sodium 142 (135-145) mmol/L Potassium 3.8 (3.3-5.1) mmol/L Chloride 104 (96-108) mmol/L Carbon Dioxide 30 H (22-29) mmol/L Anion Gap 12 (12-20) BUN 16 (9-16) mg/dL Creatinine 0.84 (0.5-1.4) mg/dL Estim Creat Clear Calc 61.9 Estimated GFR > 60 Random Glucose 115 (60-115) mg/dL Calcium 9.4 (8.4-10.2) mg/dL Total Bilirubin 0.2 (0.0-1.0) mg/dL AST 19 (5-31) U/L ALT 21 (0-31) U/L Alkaline Phosphatase 109 (39-117) U/L Troponin I High Sens < 2.7 (<3.5-17.0) ng/L Total Protein 7.0 (6.5-8.0) g/dL Albumin 4.2 (3.5-5.0) g/dL Independent Interpretation I performed an independent interpretation of an: EKG (See above) and Plain X-Ray (Agree with Radiology interpretation) Radiology Impression Discussion of test interpretation with radiology: I have reviewed the radiologist's reading. Radiologist Impression: FINDINGS: There is a unremarkable submental lymph node seen measuring 1.2 x 0.6 x 0.9 cm an abnormal mass or fluid collection is not seen. US/US soft tiss head and/or neck IMPRESSION: Unremarkable submental lymph node. Electronically signed by: Harpreet Marks MD 08/31/2024 05:[address] [facility] Discharge Plan Discharge Clinical Impression: Lymphadenopathy, submental, Arm pain, left Patient Disposition: Home, Self-Care Instructions: Lymphadenopathy (ED), Arthritis (ED) Additional Instructions: Your workup in the ER today was reassuring. Your PE your EKG, chest x-ray did not show any abnormalities. Your left arm pain is likely related to arthritis. The lump on the your chin is a lymph node that appears unremarkable You may use warm compresses to help get rid of this. Use ibuprofen/Tylenol for pain Follow-up with your primary doctor, return for new or worsening symptoms Prescriptions: No Action ondansetron HCl [Zofran] 4 mg tablet 4 mg PO Q8H PRN (Reason: nausea and vomiting) Qty: 7 0RF ketorolac 10 mg tablet 10 mg PO Q6H PRN (Reason: pain) 5 Days Qty: 20 0RF Rx Instructions: Patient received Toradol in the emergency room. cyclobenzaprine 10 mg tablet 10 mg PO BEDTIME PRN (Reason: muscle spasm) Qty: 7 0RF ketorolac 10 mg tablet 10 mg PO TID PRN (Reason: pain) 5 Days Qty: 15 0RF lidocaine 5 % adhesive patch,medicated 1 patch topical DAILY PRN (Reason: pain) Qty: 15 0RF Rx Instructions: leave on most painful area for up to 12 hrs oxycodone 5 mg tablet 5 mg PO Q6H PRN (Reason: pain) Qty: 14 0RF Rx Instructions: Partial Fill upon patient request. mupirocin 2 % ointment 1 appl topical TID Qty: 22 0RF cephalexin 500 mg capsule 500 mg PO QID 10 Days Qty: 40 0RF diphenhydramine HCl 50 mg capsule 50 mg PO Q8H PRN (Reason: itching) Qty: 12 0RF oxycodone 5 mg tablet 5 mg PO Q6H PRN (Reason: pain) Qty: 20 0RF Rx Instructions: Partial Fill upon patient request. gabapentin 300 mg capsule 300 mg PO BID Qty: 60 0RF ibuprofen 600 mg tablet 600 mg PO Q6H PRN (Reason: fever or pain) Qty: 30 0RF tobramycin 0.3 % drops 1 drp ophthalmic-Left Q4H Qty: 5 0RF prednisolone acetate 1 % drops,suspension 1 drp ophthalmic (eye) Q6H Qty: 5 0RF oxycodone 5 mg tablet 5 mg PO Q6H PRN (Reason: pain) Qty: 10 0RF Rx Instructions: Partial Fill upon patient request. acetaminophen [Tylenol Extra Strength] 500 mg tablet 1,000 mg PO Q8H PRN (Reason: pain) Qty: 30 0RF prednisone 20 mg tablet 40 mg PO DAILY 5 Days Qty: 10 0RF gabapentin 300 mg capsule 300 mg PO DAILY Qty: 20 0RF ketorolac 10 mg tablet 10 mg PO TID PRN (Reason: pain) 5 Days Qty: 15 0RF Rx Instructions: Tolerated IM or IV in department quetiapine 400 mg tablet extended release 24 hr 400 mg PO BEDTIME clonazepam 2 mg tablet 2 mg PO BID mirtazapine 30 mg tablet 30 mg PO BEDTIME acetaminophen 500 mg tablet 500 mg PO Q8H PRN pantoprazole 40 mg tablet,delayed release (DR/EC) 40 mg PO DAILY Qty: 30 6RF Print Language: Wolof
[2024-08-31 18:01] VITALS: BP 161/91; PULSE 95; RESP 18; TEMP 36.3; O2SAT 98
== END 2024-08-31 18:13 | disposition home or self-care (01) ==
PROVIDERS: Emergency Provider Emergency Medicine; PCP Internal Medicine Geriatric Medicine
DX: R59.1 Generalized enlarged lymph nodes (principal); M25.512 Pain in left shoulder; R07.9 Chest pain, unspecified
CPT/HCPCS: 36415; 71046; 76536; 80053; 84484; 85025; 93005; 96372; 99284; J1885

== ENCOUNTER → 2024-08-31 14:14 | Outpatient (BNV) | payer MEDICAID, SELFPAY | PROVIDERS: PCP Internal Medicine Geriatric Medicine; Visit Provider Internal Medicine Cardiovascular Disease | DX: R94.31 Abnormal electrocardiogram [ECG] [EKG] (principal) | CPT/HCPCS: 93010 ==

== ENCOUNTER → 2024-08-31 14:15 | Outpatient (BNV) | payer MEDICAID, SELFPAY | PROVIDERS: PCP Internal Medicine Geriatric Medicine; Visit Provider Radiology Diagnostic Radiology | DX: R07.9 Chest pain, unspecified (principal); R06.02 Shortness of breath | CPT/HCPCS: 71046 ==

== ENCOUNTER 2025-08-21 16:31 | Emergency (ER) | payer MEDICAID, SELFPAY ==
--- NOTE | ~2025-08-21 | XR_ITS ---
CLINICAL HISTORY: cp 2 view chest x-ray. Comparison: CR/SR - XR CHEST 2 VIEWS - 08/31/2024 02:59 PM EST Findings: Heart size is normal. No consolidation or effusion. No acute fracture. The visualized upper abdomen is unremarkable. Impression: No acute cardiopulmonary process. This document has been electronically signed by: Belkis Franco MD on 08/21/2025 18:50:53
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
[2025-08-21 16:41] VITALS: BP 175/101; PULSE 96; RESP 16; TEMP 36.9; O2SAT 98; BMI 23.0
--- NOTE | 2025-08-21 16:44 | ED.GENADULT ---
HPI - General Adult General Chief complaint: Chest Pain Stated complaint: HBP sent by Time Seen by Provider: 08/21/25 18:11 Source: patient Mode of arrival: ambulatory Limitations: no limitations History of Present Illness ED Provider: DR. Wells HPI narrative: 55-year-old female PMHx significant for bipolar disorder, PTSD, anxiety, depression, hypertension, chronic shoulder pain in back pain patient was brought in from her PCP office for further evaluation of high blood pressure and patient complaining of palpitation and being anxious lately, PCP refused to refill her anxiety medication because she did not keep up her appointment last week, patient lost her son from methadone overdose but year ago patient feel anxious and feel palpitation especially at nighttime. Patient currently have no SI, no HI, no auditory or visual hallucination. Has been complaining of palpitation and chest pain mostly at nighttime patient think it is secondary to anxiety Related Data Home Medications ?Medication ?Instructions ?Recorded ?Confirmed acetaminophen 500 mg tablet 500 mg PO Q8H PRN 01/14/22 clonazepam 2 mg tablet 2 mg PO BID 01/14/22 mirtazapine 30 mg tablet 30 mg PO BEDTIME 01/14/22 quetiapine 400 mg tablet,extended 400 mg PO BEDTIME 01/14/22 release 24 hr Previous Rx's ?Medication ?Instructions ?Recorded ketorolac 10 mg tablet 10 mg PO Q6H PRN pain 5 days #20 09/21/21 tabs ondansetron HCl 4 mg tablet 4 mg PO Q8H PRN nausea and 09/21/21 (Zofran) vomiting #7 tabs pantoprazole 40 mg tablet,delayed 40 mg PO DAILY #30 tabs 01/14/22 release cyclobenzaprine 10 mg tablet 10 mg PO BEDTIME PRN muscle spasm 04/11/23 #7 tabs ketorolac 10 mg tablet 10 mg PO TID PRN pain 5 days #15 04/11/23 tabs lidocaine 5 % topical patch 1 patch topical DAILY PRN pain #15 04/11/23 ea acetaminophen 500 mg tablet 1,000 mg (2 x 500 mg) PO Q8H PRN 05/29/24 (Tylenol Extra Strength) pain #30 tabs gabapentin 300 mg capsule 300 mg PO DAILY #20 caps 05/29/24 oxycodone 5 mg tablet 5 mg PO Q6H PRN pain #10 tabs 05/29/24 prednisone 20 mg tablet 40 mg (2 x 20 mg) PO DAILY 5 days 05/29/24 #10 tabs cephalexin 500 mg capsule 500 mg PO QID 10 days #40 caps 06/09/24 diphenhydramine HCl 50 mg capsule 50 mg PO Q8H PRN itching #12 caps 06/09/24 mupirocin 2 % topical ointment 1 appl topical TID #22 grams 06/09/24 oxycodone 5 mg tablet 5 mg PO Q6H PRN pain #14 tabs 06/09/24 gabapentin 300 mg capsule 300 mg PO BID #60 caps 06/12/24 oxycodone 5 mg tablet 5 mg PO Q6H PRN pain #20 tabs 06/12/24 ketorolac 10 mg tablet 10 mg PO TID PRN pain 5 days #15 07/07/24 tabs ibuprofen 600 mg tablet 600 mg PO Q6H PRN fever or pain 07/29/24 #30 tabs prednisolone acetate 1 % eye 1 drp ophthalmic (eye) Q6H #5 mL 07/29/24 drops,suspension tobramycin 0.3 % eye drops 1 drp ophthalmic-Left Q4H #5 mL 07/29/24 Allergies Allergy/AdvReac Type Severity Reaction Status Date / Time No Known Allergies (No Known Allergy Verified 08/21/25 16:45 Allergies*) Review of Systems Review of Systems: All other systems are reviewed and are negative Constitutional: Reports as per HPI and Reports no additional constitutional complaints Eyes: Reports as per HPI and Reports no additional eye complaints Reports system reviewed and no additional complaints, except as documented Cardiovascular: Reports as per HPI and Reports no additional cardiovascular complaints Respiratory: Reports as per HPI and Reports no additional respiratory complaints Gastrointestinal: Reports as per HPI and Reports no additional gastrointestinal complaints Genitourinary: Reports no additional female genitourinary complaints Musculoskeletal: Reports no additional musculoskeletal complaints Skin/Breast: Reports system reviewed and no additional complaints, except as docu Psychiatric: Reports no additional psychiatric complaints Endocrine: Reports no additional endocrine complaints Hematologic/Lymphatic: Reports no additional hematologic/lymphatic complaints Allergic/Immunologic: Reports no additional allergic/immunologic complaints Reports system reviewed and no additional complaints, except as documented and Reports Abnormal speech present [facility] Social History Social History Advance Directives: No Advance Directives Information Provided: No Physical Exam ED Vital Signs: Vital Signs - 24 hr 08/21/25 16:41 08/21/25 17:54 08/21/25 18:57 Temperature 98.5 F 98 F 98.1 F Pulse Rate 96 90 90 Respiratory Rate 16 20 18 Blood Pressure 175/101 H 170/85 H 134/71 Pulse Oximetry 98 98 98 Oxygen Delivery Method Room Air Room Air Room Air BMI result Body Mass Index 23.0 Vital signs have been reviewed and appear to be correct. Blood pressure elevated. Heart rate normal. Respiratory rate normal. Temperature normal. Oxygen saturation normal. Appearance: Alert. Oriented X3. No acute distress. Head: Normal external exam. Normocephalic. Atraumatic. No Landis signs noted. No raccoon eyes noted Eyes: PERRLA. EOMI. Conjunctiva and sclera normal. Eyelids normal. ENT: TM's Normal. Pharynx normal. Uvula midline. Moist mucous membranes. No trismus noted. No drooling noted. No muffled voice noted. Neck: Normal inspection. Neck supple. FROM. No adenopathy. Thyroid Normal. No meningeal signs. No neck mass noted. CVS: Normal heart rate and rhythm. Heart sound normal. No murmurs noted. Pulses normal throughout. Respiratory: No respiratory distress. Painless inspiration. Breath sounds normal. No wheezes/rales/rhonchi noted. Chest nontender. No accessory muscle usage noted or decreased air movement noted. Abdomen: Soft and nontender. Bowel sounds normal in all 4 quadrants. No distention noted. No organomegaly noted. No visible injury noted. Back: No CVA tenderness. Full range of motion noted. Skin: Skin warm and dry. Normal skin color. Normal skin turgor. No rashes/lesions/lacerations noted. Extremities: No lower extremity edema. Extremities exhibit normal range of motion. Extremities nontender. Neuro: Oriented X 3. Cranial nerve exam: II-XII are grossly intact No motor deficit. No sensory deficit. Reflexes normal. Course Course Course Narrative: 55 yo F history of hypertension Chest pain palpitation for the past 3 weeks. She has been having anxiety and depression. ACS workup ordered. EKG with chest x-ray. Rapid medical screening exam was performed. Patient stable at time of evaluation. Eli Hamm DO 08/21/25 [id number] Reevaluation(s) Reevaluation #1: 55-year-old female history of anxiety, PTSD not taking her medication for few months because patient did not keep her appointment with her PCP, currently declined SI or HI, no visual or auditory hallucination, Time: 19:41 Medications Administered Discontinued Medications Generic Name Dose Route Start Last Admin Trade Name Freq PRN Reason Stop Dose Admin Lorazepam 2 mg 08/21/25 18:24 08/21/25 19:03 Lorazepam 1 Mg Tablet PO 08/21/25 18: 2 mg ONCE ONE Administration Medical Decision Making Differential Diagnosis Differential Diagnoses: The differential diagnosis associated with the presentation includes (Anxiety, depression, acute psychosis, electrolyte derangement, severe anemia, palpitation.) Admission/Observation Consideration of admission/observation: Escalation of care including admission/observation considered Lab Data MDM Lab Attestation statement: I reviewed the patient's lab results. 08/21/25 16:59 08/21/25 16:59 Labs: Lab Results 08/21/25 08/21/25 Range/Units 16:59 18:55 WBC 7.4 (4.8-10.8) X10*3/uL RBC 4.10 L (4.20-5.50) X10*6/uL Hgb 12.4 (12.0-16.0) g/dl Hct 38.8 (37.0-47.0) % MCV 94.6 (80.0-98.0) fL MCH 30.2 (27.0-33.0) pg MCHC 32.0 (31.0-35.0) g/dl RDW 13.6 (11.0-16.0) % Plt Count 244 (160-400) X10*3/uL MPV 10.9 (9.4-12.3) fL Immature Gran % (Auto) 0.1 (0.0-0.4) % Neut % (Auto) 68.7 (45-73) % Lymph % (Auto) 22.8 (20-40) % [place] % (Auto) 8.2 (2-11) % Eos % (Auto) 0.1 (0-4) % Baso % (Auto) 0.1 (0-2) % Lymph # (Auto) 1.7 (1.2-4.9) X10*3/uL [place] # (Auto) 0.6 (0.1-1.2) X10*3/uL Eos # (Auto) 0.0 (0.0-0.4) X10*3/uL Baso # (Auto) 0.0 (0.0-0.2) X10*3/uL Abs Immat Gran (auto) 0.01 (0.00-0.03) X10*3/uL Absolute Neuts (auto) 5.1 (2.0-8.3) x10*3/uL Absolute Nucleated RBC 0.000 (0.0-0.012) X10*3/uL Nucleated RBC % (auto) 0.0 (0.0-0.2) /100WBC D-Dimer High Sensitivty < 150 NG/ML Sodium 143 (135-145) mmol/L Potassium 3.6 (3.3-5.1) mmol/L Chloride 109 H (96-108) mmol/L Carbon Dioxide 25 (22-29) mmol/L Anion Gap 13 (12-20) BUN 9 (9-16) mg/dL Creatinine 0.61 (0.5-1.4) mg/dL Estim Creat Clear Calc 84.3 Estimated GFR > 60 Random Glucose 102 (60-115) mg/dL Calcium 9.3 (8.4-10.2) mg/dL Total Bilirubin 0.2 (0.0-1.0) mg/dL AST 16 (5-31) U/L ALT 15 (0-31) U/L Alkaline Phosphatase 102 (39-117) U/L Troponin I High Sens < 2.7 < 2.7 (<3.5-17.0) ng/L Total Protein 7.4 (6.5-8.0) g/dL Albumin 4.7 (3.5-5.0) g/dL Independent Interpretation I performed an independent interpretation of an: Plain X-Ray (No acute intrathoracic pathology.) Radiology Impression Discussion of test interpretation with radiology: I have reviewed the radiologist's reading. Discharge Plan Discharge Clinical Impression: Anxiety, Palpitation Patient Disposition: Home, Self-Care Instructions: Anxiety (ED) Prescriptions: No Action ondansetron HCl [Zofran] 4 mg tablet 4 mg PO Q8H PRN (Reason: nausea and vomiting) Qty: 7 0RF ketorolac 10 mg tablet 10 mg PO Q6H PRN (Reason: pain) 5 Days Qty: 20 0RF Rx Instructions: Patient received Toradol in the emergency room. cyclobenzaprine 10 mg tablet 10 mg PO BEDTIME PRN (Reason: muscle spasm) Qty: 7 0RF ketorolac 10 mg tablet 10 mg PO TID PRN (Reason: pain) 5 Days Qty: 15 0RF lidocaine 5 % adhesive patch,medicated 1 patch topical DAILY PRN (Reason: pain) Qty: 15 0RF Rx Instructions: leave on most painful area for up to 12 hrs oxycodone 5 mg tablet 5 mg PO Q6H PRN (Reason: pain) Qty: 14 0RF Rx Instructions: Partial Fill upon patient request. mupirocin 2 % ointment 1 appl topical TID Qty: 22 0RF cephalexin 500 mg capsule 500 mg PO QID 10 Days Qty: 40 0RF diphenhydramine HCl 50 mg capsule 50 mg PO Q8H PRN (Reason: itching) Qty: 12 0RF oxycodone 5 mg tablet 5 mg PO Q6H PRN (Reason: pain) Qty: 20 0RF Rx Instructions: Partial Fill upon patient request. gabapentin 300 mg capsule 300 mg PO BID Qty: 60 0RF ibuprofen 600 mg tablet 600 mg PO Q6H PRN (Reason: fever or pain) Qty: 30 0RF tobramycin 0.3 % drops 1 drp ophthalmic-Left Q4H Qty: 5 0RF prednisolone acetate 1 % drops,suspension 1 drp ophthalmic (eye) Q6H Qty: 5 0RF oxycodone 5 mg tablet 5 mg PO Q6H PRN (Reason: pain) Qty: 10 0RF Rx Instructions: Partial Fill upon patient request. acetaminophen [Tylenol Extra Strength] 500 mg tablet 1,000 mg PO Q8H PRN (Reason: pain) Qty: 30 0RF prednisone 20 mg tablet 40 mg PO DAILY 5 Days Qty: 10 0RF gabapentin 300 mg capsule 300 mg PO DAILY Qty: 20 0RF ketorolac 10 mg tablet 10 mg PO TID PRN (Reason: pain) 5 Days Qty: 15 0RF Rx Instructions: Tolerated IM or IV in department quetiapine 400 mg tablet extended release 24 hr 400 mg PO BEDTIME clonazepam 2 mg tablet 2 mg PO BID mirtazapine 30 mg tablet 30 mg PO BEDTIME acetaminophen 500 mg tablet 500 mg PO Q8H PRN pantoprazole 40 mg tablet,delayed release (DR/EC) 40 mg PO DAILY Qty: 30 6RF Referrals: Name,MD Orion [Primary Care Provider, Internal Medicine] Print Language: Italian
--- NOTE | 2025-08-21 16:45 | ECG_ITS ---
Test Reason : CP Blood Pressure : */* mmHG Vent. Rate : 86 BPM Atrial Rate : 86 BPM P-R Int : 132 ms QRS Dur : 92 ms QT Int : 374 ms P-R-T Axes : 60 79 66 degrees QTcB Int : 447 ms Normal sinus rhythm Possible Left atrial enlargement Left ventricular hypertrophy ( Sokolow-Chatterjee , Romhilt-Montanez ) Nonspecific T wave abnormality Abnormal ECG When compared with ECG of 31-Aug-2024 14:13, No significant change was found Referred By: Eli Hamm Electronically Signed By: NACHO QUINN
[2025-08-21 17:05] LABS: MANUAL DIFF FLAG NO
[2025-08-21 17:08] LABS: Hematocrit 38.8 % (37.0-47.0); Hemoglobin 12.4 g/dl (12.0-16.0); Imm Gran Abs Auto 0.01 X10*3/uL (0.00-0.03); Imm Gran Pct Auto 0.1 % (0.0-0.4); Lymphocytes Absolute Auto 1.7 X10*3/uL (1.2-4.9); Mean Corpuscular HGB Conc 32.0 g/dl (31.0-35.0); Mean Corpuscular Hemoglobin 30.2 pg (27.0-33.0); Mean Corpuscular Volume 94.6 fL (80.0-98.0); NRBC Abs Auto 0.000 X10*3/uL (0.0-0.012); NRBC Pct Auto 0.0 /100WBC (0.0-0.2); Platelet Count 244 X10*3/uL (160-400); Red Blood Count 4.10 X10*6/uL (4.20-5.50); White Blood Count 7.4 X10*3/uL (4.8-10.8)
[2025-08-21 17:23] LABS: Alanine Aminotransferase 15 U/L (0-31); Albumin Level 4.7 g/dL (3.5-5.0); Alkaline Phosphatase 102 U/L (39-117); Anion Gap 13 (12-20); Aspartate Amino Transferase 16 U/L (5-31); Blood Urea Nitrogen 9 mg/dL (9-16); Calcium 9.3 mg/dL (8.4-10.2); Carbon Dioxide 25 mmol/L (22-29); Chloride 109 mmol/L (96-108); Creatinine Clr Calc Pharmacy 84.3; Estimated Glomerular Filt Rate > 60; Potassium 3.6 mmol/L (3.3-5.1); Sodium 143 mmol/L (135-145); Total Protein 7.4 g/dL (6.5-8.0)
[2025-08-21 17:35] LABS: Troponin-I High Sensitivity < 2.7 ng/L (<3.5-17.0)
[2025-08-21 17:54] VITALS: BP 170/85; PULSE 90; RESP 20; TEMP 36.6; O2SAT 98
[2025-08-21 17:56] VITALS: PULSE 98
[2025-08-21 18:57] VITALS: BP 134/71; PULSE 90; RESP 18; TEMP 36.7; O2SAT 98
[2025-08-21 19:17] LABS: D Dimer High Sensitivity < 150 NG/ML
[2025-08-21 19:27] LABS: Troponin-I High Sensitivity < 2.7 ng/L (<3.5-17.0)
[2025-08-21 19:55] VITALS: BP 165/91; PULSE 102; RESP 18; TEMP 36.8; O2SAT 97
--- OUTSIDE RECORDS SUMMARY | 2025-08-21 20:20 | XMS_ITS | Encounter Summary ---
Author Organization [employer] Address [address] [place] [address] Care Team Providers Care Ice Puller Name Role Phone Name, [facility] MONTERO Primary Care Provider [phone] Esdras Gaines RN Unavailable Suyapa Adkins Unavailable Encounter Details Date Type Department Care Team (Latest Contact Info) Description 08/21/2025 Travel Social History Tobacco Use Types Packs/Day Years [...] AM EDT documented as of this encounter Plan of Treatment Not on file documented as of this encounter Visit Diagnoses Not on filedocumented in this encounter Additional Health Concerns Assessment Noted Time PHQ-9 Depression Total Score: 17 025 8:58 AM EST documented as of this encounter Care Teams Ice Puller Relationship Specialty Start Date End Date Name, MD [address] [address] [place] [address] PCP - General Family Medicine 02/17/16 Esdras Gaines, RN [address] [place] [id number] Registered Nurse Family Medicine 07/04/25 Suyapa Adkins 07/04/25 documented as of this encounter
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
--- OUTSIDE RECORDS SUMMARY | 2025-08-21 20:20 | XMS_ITS | Encounter Summary ---
Author Organization [employer] Address [address] [facility] 7t [place] [address] Care Team Providers Care Lieutenant General Name Role Phone Name, Orion MONTERO Primary Care Provider [phone] Esdras Gaines RN Unavailable [phone] Suyapa Adkins Unavailable Reason for Visit * Reason Comments Med Refill Encounter Details Date Type Department Care Team ([facility] st Contact Info) Description 08/31/2023 Refill [facility] [address] [place] [address] Shannan Marsh FNP Mood disorder (CMS/HCC) Social History Tobacco Use Types Packs/Day Years Used Date Smoking Tobacco: Every Day Cigarettes Passive Smoke Exposure: Current Smokeless Tobacco: Never Alcohol Use Standard Drinks/Week Comments Not Currently 0 (1 standard drink = 0.6 oz pur e alcohol) Depression Answer Date Recorded Patient Health Questionnaire-9 Score 0 02/28/2023 Housing Stability Answer Date Recorded What is [...] Answer Date Recorded Patient Health Questionnaire-2 Score 0 02/28/2023 Comments Unknown Sex and Gender Information Value Date Recorded Sex Assigned at Female 08/23/2022 10:15 AM EDT Legal Sex Female 10:15 AM EDT Gender Identity Female 08/23/2022 10:15 AM EDT Sexual Orientation Straight 08/23/2022 10 :15 AM EDT documented as of this encounter Plan of Treatment Not on file documented as of this encounter Visit Diagnoses Diagnosis Mood disorder (CMS/HCC) Unspecified episodic mood disorder documented in this encounter Additional Health Concerns Assessment Noted Time PHQ-9 Depression Total Score: 0 02/29/20 23 3:46 PM EDT documented as of this encounter Care Teams Lieutenant General Relationship Specialty Start Date End Date Name, MD Orion [address] [place] [address] PCP - General Family Medicine 02/17/16 Esdras Gaines, RN [address] [place] [address] Registered Nurse Family Medicine 07/04/25 Suyapa Adkins 07/04/25 documented as of this encounter
--- OUTSIDE RECORDS SUMMARY | 2025-08-21 20:20 | XMS_ITS | Encounter Summary ---
Author Organization [employer] Address [address] [facility] 7t [place] [address] Care Team Providers Care Security System Technician Name Role Phone Name, Orion MONTERO Primary Care Provider [phone] Esdras Gaines RN Unavailable [phone] Suyapa Adkins Unavailable Reason for Visit * Reason Comments Med Refill Encounter Details Date Type Department Care Team (Late st Contact Info) Description 11/21/2023 Refill [facility] [address] [place], [place] [phone] Name, MD Orion [address] [place] [address] History of peptic ulcer; Hypertension, unspecified type Social History Tobacco Use Types Packs/Day Years [...] as of this encounter Visit Diagnoses Diagnosis History of peptic ulcer Personal history of peptic ulcer disease Hypertension, unspecified type documented in this encounter Additional Health Concerns Assessment Noted Time PHQ-9 Depression Total Score: 0 02/29/20 23 3:46 PM EDT documented as of this encounter Care Teams Security System Technician Relationship Specialty Start Date End Date Name, MD Orion [address] [place] [address] PCP - General Family Medicine 02/17/16 Esdras Gaines, ARLETH [address] [place] [phone] Registered Nurse Family Medicine 07/04/25 Suyapa Adkins 07/04/25 documented as of this encounter
--- OUTSIDE RECORDS SUMMARY | 2025-08-21 20:20 | XMS_ITS | Encounter Summary ---
Author Organization [employer] Address 75 [facility] 7t [place] [address] Care Team Providers Care Dust Box Worker Name Role Phone Name, Orion MONTERO Primary Care Provider Esdras Gaines RN Unavailable Suyapa Adkins Unavailable Reason for Visit * Reason Onset Date Comments triage 02/23/2023 Schedule with PCP 02/23/2023 See note Encounter Details Date Type Department Care Team (Late st Contact Info) Description 02/23/2023 Telephone [facility] MEDICINE [address] [place], [place] [phone] Name, MD Orion [address] [employer], [place] [phone] triage; Schedule with PCP (See note/) Social History Tobacco Use Types Packs/Day Years Used Date Smoking Tobacco: Every Day Cigarettes Smokeless Tobacco: Never Alcohol Use Standard Drinks/Week Comments Not Currently 0 (1 standard drink = 0.6 oz pur e alcohol) Comments Unknown Sex and Gender Information Value Date Recorded Sex Assigned at Female 08/23/2022 10:15 AM EDT Legal Sex Female 10:15 AM EDT Gender Identity Female 08/23/2022 10:15 AM EDT Sexual Orientation Straight 08/23/2022 10 :15 AM EDT documented as of this encounter Miscellaneous Notes * Telephone Encounter - Jayashree Chan RN - 02/23/2023 2:40 PM EDT Received call from pt. Pt is now scheduled to see PCP 02/28/23 @ 3:45pm. Pt will call this appeals writer tomorrow if she cannot make that time d/t a possible court appearance. Pt stated she was currently at [facility] getting a CT scan done. It was difficult to hear her at time. Explained to pt it was important she attend this appointment, she stated she understood. * Telephone Encounter - Jayashree Chan RN - 02/23/2023 2:27 PM EDT TC to pt, no answer. L/M requesting she call back KANU, PCP would like her to be seen by him on 02/28/23 @ 3:45pm for her colitis pain. PCP will not refill narcotic prior to seeing her. * Telephone Encounter - Bing Turcios RN - 02/23/2023 11:50 AM EDT Triage call Pt reports was in [place] due to family loss and needs. Pt started with colitis as was prescribed oxycodone for pain. Pt calls today in severe abdominal pain . Advised Pt to seek evaluation at closest ED and then to call for follow up apt. Pt agrees with this plan and reports Pt family to transport. Protocol Used: Abdominal Pain - Female (Adult) Protocol-Based Disposition: Go to ED Now Positive Triage Question: * Severe abdominal pain (e.g., excruciating) * All higher-acuity triage questions were negative * Telephone Encounter - Saige Ribeiro - 02/23/2023 10:49 AM EDT Patient calling to report colitis symptoms and is I so much pain . Patient speaks Danish. Advised triage nurse will call patient back. Pt would like to know if pcp can send some medications . documented in this encounter Plan of Treatment Not on file documented as of this encounter Visit Diagnoses Not on filedocumented in this encounter Care Teams Dust Box Worker Relationship Specialty Start Date End Date Name, MD Orion [address] [place] [address] PCP - General Family Medicine 02/17/16 Esdras Gaines RN [address] [place] [address] Registered Nurse Family Medicine 07/04/25 Suyapa Adkins 07/04/25 documented as of this encounter
--- OUTSIDE RECORDS SUMMARY | 2025-08-21 20:20 | XMS_ITS | Clinical Summary ---
Author Organization [facility] ity Address [address] [place] [address] Care Team Providers Care Market Development Analyst Name Role Phone Name, Orion MONTERO Primary Care Provider [phone] Medical History Medical History Date Comments GERD (gastroesophageal reflu x disease) 10/09/2018 DX:GERD (gastroesophageal re flux disease) Bipolar disorder (CMS/HCC V2 4, CMS/HCC V28) 10/09/2018 DX:Bipolar disorder (HCC) Chronic left shoulder pain 10/09/2018 DX:Ch ronic left shoulder pain Depression 10/09/2018 DX:Depression Essential (primary) hypertension 10/09/2018 DX:Essential (primary) hypertension Viral wart on finger 10/09/2018 DX:Viral wa rt on finger Social History Tobacco Use Types Packs/Day Years Used Date Smoking Tobacco: Some Days Smokeless Tobacco: Current Comments Unknown Sex and Gender Information Value Date Recorded Sex Assigned at Not on file Legal Sex Female 11:44 PM EST Gender Identity Not on file Sexual Orientation Not on file Obstetrics History Plan of Treatment Health Maintenance Due Date Last Done Comments Breast Cancer Screening 1972 DTaP,Tdap,and Td Vaccines (1 - Tdap) 1991 Hepatitis B Vaccines (1 of 3 - 19+ 3-dose series) 1991 Cervical Cancer Screening: P ap Smear 1993 Pneumococcal Vaccine: 50+ Ye ars (1 of 1 - PCV) 2022 Zoster Vaccines (1 of 2) 2022 Depression Screening 10/24/2024 COVID-19 Vaccine ( - 2023-2 5 season) 2025 Influenza Vaccine (#1) 2025 RSV Immunization Adult Patie nts (1 - 1-dose 75+ series) 2047 HIB Vaccines Aged Out No longer eligi [...] on patient's age to complete this topic MMR Vaccines Aged Out No longer eligi ble based on patient's age to complete this topic Meningococcal ACWY Vaccine Aged Out N o longer eligible based on patient's age to complete this topic Meningococcal B Vaccine Aged Out No l onger eligible based on patient's age to complete this topic RSV Immunization Patients Un anna 20 months Aged Out No longer eligible b ased on patient's age to complete this topic Varicella Vaccines Aged Out No longer eligible based on patient's age to complete this topic Care Teams Market Development Analyst Relationship Specialty Start Date End Date Name, MD Orion [address] [place], [place] PCP - General Internal Medicine 03/03/18
--- OUTSIDE RECORDS SUMMARY | 2025-08-21 20:20 | XMS_ITS ---
Author Organization [employer] Address 75 [facility] 7t [place] [address] Care Team Providers Care Travel Sales Consultant Name Role Phone Name, Orion MONTERO Primary Care Provider [phone] Esdras Gaines RN Unavailable [phone] Suyapa Adkins Unavailable CHW Complex Status:Outreach In Progress (Enrolling) Start date:07/04/2025 Enrollment reason:ADT Feed Overview [place]- [facility] [place] Case Team Name Relationship Phone Suyapa Adkins(Responsible Staff) Continued Care and Services Coordination
--- OUTSIDE RECORDS SUMMARY | 2025-08-21 20:20 | XMS_ITS | Encounter Summary ---
Author Organization [employer] Address 75 [facility] 7t [place] [address] Care Team Providers Care Bale Stacker Name Role Phone Name, Orion MONTERO Primary Care Provider [phone] Esdras Gaines RN Unavailable [phone] Suyapa Adkins Unavailable Reason for Visit * Reason Comments Care Coordination C3- chart review Encounter Details Date Type Department Care Team (Latest Contact Info) Description 07/04/2025 Patient Outreach [facility] MEDICINE [address] [place], [place] [phone] Name, MD Orion [address] [place] [address] Care Coordination (C3CM- chart review) Social History Tobacco Use Types Packs/Day Years [...] AM EDT documented as of this encounter Progress Notes * Esdras Gaines RN - 07/04/2025 8:20 AM EDT BOO Gaines RN, performed chart review, in anticipation of initial assessment with patient, aspatient has stratified for C3 Adult Complex Care through the ADT feed. History significant for chronic left shoulder pain, depressive disorder, HTN, PTSD, colitis, poor dentition, smoker, bipolar diso rder, anxiety, GERD. Specialists include , psychiatry, Eye and [facility] ophthalmology. ED visits within the last 12 months include [facility] [place], [facility] [place], [facility] [place]. Last appointment in PCP officeon 07/03/24. No future appointment scheduled with PCP. documented in this encounter Plan of Treatment Not on file documented as of this encounter Visit Diagnoses Not on filedocumented in this encounter Additional Health Concerns Assessment Noted Time PHQ-9 Depression Total Score: 17 025 8:58 AM EST documented as of this encounter Care Teams Bale Stacker Relationship Specialty Start Date End Date Name, MD Orion [address] [place] [address] PCP - General Family Medicine 02/17/16 Esdras Gaines RN [address] [place] [address] Registered Nurse Family Medicine 07/04/25 Suyapa Adkins 07/04/25 documented as of this encounter
--- OUTSIDE RECORDS SUMMARY | 2025-08-21 20:20 | XMS_ITS | Encounter Summary ---
Author Organization [employer] Address 75 [facility] 7t [place] [address] Care Team Providers Care Gum Rolling Machine Operator Name Role Phone Name, Orion MONTERO Primary Care Provider [phone] Esdras Gaines RN Unavailable [phone] Suyapa Adkins Unavailable Reason for Visit * Reason Comments Med Refill Encounter Details Date Type Department Care Team (Late st Contact Info) Description 10/19/[address] [facility] CHC MED & PEDS [address] [place], [place] [phone] Name, MD Orion 230 [place] [address] Social History Tobacco Use Types Packs/Day Years [...] documented as of this encounter Care Teams Gum Rolling Machine Operator Relationship Specialty Start Date End Date Name, MD Orion 230 [place] [address] PCP - General Family Medicine 02/17/16 Esdras Gaines, ARLETH [address] [place] [address] Registered Nurse Family Medicine 07/04/25 Suyapa Adkins 07/04/25 documented as of this encounter
--- OUTSIDE RECORDS SUMMARY | 2025-08-21 20:20 | XMS_ITS | Encounter Summary ---
Author Organization [employer] Address [address] [facility] 7t [place] [address] Care Team Providers Care Supervisor Line Department Name Role Phone Name, Orion MONTERO Primary Care Provider [phone] Esdras Gaines RN Unavailable [phone] Suyapa Adkins Unavailable Encounter Details Date Type Department Care Team ([facility] st Contact Info) Description 03/28/2023 Abstract [facility] MEDICINE [address] [place], [place] [phone] Name, MD Orion [address] [place] [address] Social History Tobacco Use Types Packs/Day Years Used Date Smoking Tobacco: Every Day Cigarettes Passive Smoke Exposure: Current Smokeless Tobacco: Never Alcohol Use Standard Drinks/Week Comments Not Currently 0 (1 standard drink = 0.6 oz pur e alcohol) Depression Answer Date Recorded Patient Health Questionnaire-9 Score 0 02/28/2023 Depression Answer Date Recorded Patient Health Questionnaire-2 Score 0 02/28/2023 Comments Unknown Sex and Gender Information Value Date Recorded Sex Assigned at Female 08/23/2022 10:15 AM EDT Legal Sex Female 10:15 AM EDT Gender Identity Female 08/23/2022 10:15 AM EDT Sexual Orientation Straight 08/23/2022 10 :15 AM EDT COVID-19 Exposure Response Date Recorded In the last 10 days, have yo u been in contact with someone who was confirmed or suspected to have Coronavirus/COVID-19? No / Unsure 03/08/2023 1:01 PM EDT documented as of this encounter Plan of Treatment Not on file documented as of this encounter Visit Diagnoses Not on filedocumented in this encounter Additional Health Concerns Assessment Noted Time PHQ-9 Depression Total Score: 0 02/29/20 23 3:46 PM EDT documented as of this encounter Care Teams Supervisor Line Department Relationship Specialty Start Date End Date Name, MD Orion [address] [place] [address] PCP - General Family Medicine 02/17/16 Esdras Gaines, ARLETH [address] [place] [address] Registered Nurse Family Medicine 07/04/25 Suyapa Adkins 07/04/25 documented as of this encounter
--- OUTSIDE RECORDS SUMMARY | 2025-08-21 20:20 | XMS_ITS ---
Author Organization [employer] Address 75 [facility] 7t [place] [address] Care Team Providers Care Inbound Call Center Representative Name Role Phone Name, Orion MONTERO Primary Care Provider [phone] Esdras Gaines RN Unavailable [phone] Suyapa Adkins Unavailable CM Complex Status:Outreach In Progress (Enrolling) Start date:07/04/2025 Enrollment reason:ADT Feed Overview AD[place]- [facility] [place] Case Team Name Relationship Phone Esdras Gaines RN(Responsible Staff) Registered N darshan [phone] Continued Care and Services Coordination
--- OUTSIDE RECORDS SUMMARY | 2025-08-21 20:20 | XMS_ITS | Encounter Summary ---
Author Organization [employer] Address [address] [facility] 7t [place] [address] Care Team Providers Care Farm Crew Member Name Role Phone Name, Orion MONTERO Primary Care Provider [phone] Esdras Gaines RN Unavailable Suyapa Adkins Unavailable Reason for Visit * Reason Comments Med Refill Encounter Details Date Type Department Care Team (Late st Contact Info) Description 03/13/2023 Refill [facility] MEDICINE [address] [place], [place] [phone] Name, MD Orion [address] [place] [address] Anxiety disorder, unspecified Social History Tobacco Use Types Packs/Day Years [...] as of this encounter Visit Diagnoses Diagnosis Anxiety disorder, unspecified documented in this encounter Additional Health Concerns Assessment Noted Time PHQ-9 Depression Total Score: 0 02/29/20 23 3:46 PM EDT documented as of this encounter Care Teams Farm Crew Member Relationship Specialty Start Date End Date Name, MD Orion [address] [place] [address] PCP - General Family Medicine 02/17/16 Esdras Gaines, ARLETH [address] [place] [address] Registered Nurse Family Medicine 07/04/25 Suyapa Adkins 07/04/25 documented as of this encounter
--- OUTSIDE RECORDS SUMMARY | 2025-08-21 20:20 | XMS_ITS | Encounter Summary ---
Author Organization [employer] Address [address] [place] [address] 7t [place] [address] Care Team Providers Care Organisational Psychologist Name Role Phone Name, Orion MONTERO Primary Care Provider [phone] Esdras Gaines RN Unavailable [phone] Suyapa Adkins Unavailable Reason for Visit * Reason Comments Med Refill Encounter Details Date Type Department Care Team ([facility] st Contact Info) Description 10/01/2022 Refill [facility] MED & PEDS [address] [place], [place] [phone] Jane Douglas MD 230 [place], [place] [phone] Social History Tobacco Use Types Packs/Day Years Used Date Smoking Tobacco: Never Assessed Comments Unknown Sex and Gender Information Value [...] on filedocumented in this encounter Care Teams Organisational Psychologist Relationship Specialty Start Date End Date Name, MD Orion [address] [place], [place] [phone] PCP - General Family Medicine 02/17/16 Esdras Gaines, RN [address] [place], [place] [phone] Registered Nurse Family Medicine 07/04/25 Suyapa Adkins 07/04/25 documented as of this encounter
--- OUTSIDE RECORDS SUMMARY | 2025-08-21 20:20 | XMS_ITS | Encounter Summary ---
Author Organization [employer] Address 75 [facility] 7t [place] [address] Care Team Providers Care Metal Refiner Name Role Phone Name, Orion MONTERO Primary Care Provider [phone] Esdras Gaines RN Unavailable [phone] Suyapa Adkins Unavailable Reason for Visit * Reason Comments Med Refill Encounter Details Date Type Department Care Team (Late st Contact Info) Description 03/07/2023 Refill [facility] MEDICINE 230 [place], [place] [phone] Name, MD Orion [address] [place] [address] Weight loss; Malaise and fatigue; Muscle pain Social History Tobacco Use Types Packs/Day Years [...] as of this encounter Visit Diagnoses Diagnosis Weight loss Loss of weight Malaise and fatigue Muscle pain Unspecified myalgia and myositis documented in this encounter Additional Health Concerns Assessment Noted Time PHQ-9 Depression Total Score: 0 02/29/20 23 3:46 PM EDT documented as of this encounter Care Teams Metal Refiner Relationship Specialty Start Date End Date Name, MD Orion [address] [place] [address] PCP - General Family Medicine 02/17/16 Esdras Gaines, ARLETH [address] [place] [address] Registered Nurse Family Medicine 07/04/25 Suyapa Adkins 07/04/25 documented as of this encounter
--- OUTSIDE RECORDS SUMMARY | 2025-08-21 20:20 | XMS_ITS | Encounter Summary ---
Author Organization [employer] Address 75 [facility] 7t [place] [address] Care Team Providers Care Junior Assistant Manager Name Role Phone Name, Orion MONTERO Primary Care Provider Esdras Gaines RN Unavailable [phone] Suyapa Adkins Unavailable Reason for Visit * Reason Comments Med Refill Encounter Details Date Type Department Care Team (Late st Contact Info) Description 07/26/[address] [facility] MEDICINE [address] [place], [place] [phone] Eileen Johnston MD [address] [place], [place] [phone] Colitis Social History Tobacco Use Types Packs/Day Years [...] as of this encounter Visit Diagnoses Diagnosis Colitis Other and unspecified noninfectious gastroenteritis and colitis documented in this encounter Additional Health Concerns Assessment Noted Time PHQ-9 Depression Total Score: 0 02/29/20 23 3:46 PM EDT documented as of this encounter Care Teams Junior Assistant Manager Relationship Specialty Start Date End Date Name, MD Orion [address] [place] [address] PCP - General Family Medicine 02/17/16 Esdras Gaines, ARLETH [address] [place] [address] Registered Nurse Family Medicine 07/04/25 Suyapa Adkins 07/04/25 documented as of this encounter
--- OUTSIDE RECORDS SUMMARY | 2025-08-21 20:20 | XMS_ITS | Encounter Summary ---
Author Organization [employer] Address 75 [facility] 7t [place] [address] Care Team Providers Care Line Installer Repairer Name Role Phone Name, Orion MONTERO Primary Care Provider [phone] Esdras Gaines RN Unavailable [phone] Suyapa Adkins Unavailable Reason for Visit * Reason Onset Date Comments triage 03/14/2023 Encounter Details Date Type Department Care Team ([facility] st Contact Info) Description 03/14/2023 Telephone [facility] MEDICINE 230 [place], [place] [phone] Name, MD Orion [address] [place], [place] [phone] triage Social History Tobacco Use Types Packs/Day Years [...] PM EDT documented as of this encounter Miscellaneous Notes * Telephone Encounter - Natasha Rosas RN - 03/14/2023 1:09 PM EDT Call to Tr[facility] Mazariegos, reports having right sided abdominal pain. Per pt denies any vomiting or diarrhea. Pt having constipation. Was able to have BM today. Per pt wants to see PCP as was not given pain meds at [facility] visit 03/08. Pt advised nothing sooner with PCP. PCP out of office today not back inuntil Tomorrow. Pt requesting refill of oxycodone to help with pain. Per pt taking budesonide with no relief. Pt advised will send to PCP team nurses to review with PCP or covering on request. Pt to call back periodically for any cancellations for sooner appt with PCP. Protocol Used: Abdominal Pain - Female (Adult) Protocol-Based Disposition: See in Office or Video Visit within 2 Weeks Positive Triage Question: * Abdominal pain is a chronic symptom (recurrent or ongoing AND lasting > 4 weeks) * All higher-acuity triage questions were negative Care Advice Discussed: * Reassurance and Education - Mild Stomachache * Drink Clear Fluids * Diet * Pass a Stool * Avoid Aspirin and NSAIDs * Reasons To Call Back - You become worse * Telephone Encounter - Abiodun Fernández - 03/14/2023 12:23 PM EDT Symptom: Abdominal Pain - Female - Not Outcome: Talk to a nurse or provider within 15 minutes Reason: Severe pain now The caller accepted this outcome speaks belarusian documented in this encounter Plan of Treatment Not on file documented as of this encounter Visit Diagnoses Not on filedocumented in this encounter Additional Health Concerns Assessment Noted Time PHQ-9 Depression Total Score: 0 02/29/20 3:46 PM EDT documented as of this encounter Care Teams Line Installer Repairer Relationship Specialty Start Date End Date Name, MD Orion [address] [place] [address] PCP - General Family Medicine 02/17/16 Esdras Gaines, RN [address] [place] [address] Registered Nurse Family Medicine 07/04/25 Suyapa Adkins 07/04/25 documented as of this encounter
--- OUTSIDE RECORDS SUMMARY | 2025-08-21 20:20 | XMS_ITS | Encounter Summary ---
Author Organization [employer] Address 75 [facility] 7t [place] [address] Care Team Providers Care Campus Rep Name Role Phone Name, Orion MONETRO Primary Care Provider [phone] Esdras Gaines RN Unavailable [phone] Suyapa Adkins Unavailable Reason for Visit * Reason Comments Med Refill Encounter Details Date Type Department Care Team (Late st Contact Info) Description 10/20/2023 Refill [facility] CHC MED & PEDS [address] [place], [place] [phone] Name, MD Orion [address] [place] [address] Social History Tobacco Use Types Packs/Day Years [...] documented as of this encounter Care Teams Campus Rep Relationship Specialty Start Date End Date Name, MD Orion [address] [place] [address] PCP - General Family Medicine 02/17/16 Esdras Gaines, ARLETH [address] [place] [address] Registered Nurse Family Medicine 07/04/25 Suyapa Adkins 07/04/25 documented as of this encounter
--- OUTSIDE RECORDS SUMMARY | 2025-08-21 20:20 | XMS_ITS | Encounter Summary ---
Author Organization [email or web address] Address [address] [facility] [address] [place] [address] Care Team Providers Care Joint Supervisor Name Role Phone Name, Orion MONTERO Primary Care Provider [phone] Esdras Gaines RN Unavailable [phone] Suyapa Adkins Unavailable Encounter Details Date Type Department Care Team (Late st Contact Info) Description 08/21/2025 Orders Only GENERIC EXTERNAL DATA DEPARTMENT Provider, Generic External Data Social History Tobacco Use Types Packs/Day Years [...] on file documented as of this encounter Procedures Procedure Name Priority Date/Time Associated Diagnosis Comments D DIMER HIGH SENSITIVITY Routine 08/21/2025 6:55 PM EDT HIGH SENSITIVITY TROPONIN I Routine 08/21/2025 6:55 PM EDT XR CHEST 2 VIEWS Routine 08/21/2025 6:50 PM EDT HIGH SENSITIVITY TROPONIN I Routine 08/21/2025 4:59 PM EDT CBC WITH AUTO DIFFERENTIAL Routine 08/21/2025 4:59 PM EDT COMPREHENSIVE METABOLIC PANEL Routine 08/21/2025 4:59 PM EDT documented in this encounter Results * High Sensitivity Troponin I (08/21/2025 6:55 PM EDT) TROPONIN I HIGH SENSITIVITY <2.7 <3.5 - 17.0 ng/L [facility] Comment:[employer] high sens itivity Troponin-I results should beused in conjunction with other diagnostic information suchas ECG, clinical observations and information, and patientsymptoms to aid in the diagnosis of [place]. 08/21/2025 6:55 PM EDT 08/21/2025 7:00 PM EDT us Generic External Data Provider LAB BLOOD ORDERAB LES Final Result [facility] [address] [place] [phone] * D Dimer High Sensitivity (08/21/2025 6:55 PM EDT) D Dimer High Sensitivity <150 NG/ML [facility] Comment:D-DIMER HS REFERENCE RANGENote: Our assay [...] ORDERAB LES Final Result Performing Organization Address City/State/[facility] Co de Phone Number [facility] [address] [place] [phone] * XR Chest 2 Views (08/21/2025 6:50 PM EDT) Anatomical Region Laterality Modality Chest Radiographic Rina ging 08/21/2025 6:50 PM EDT Narrative 08/21/2025 6:51 PM EDT [address] [address] XRay Report Signed Patient: Trice Mazariegos MR#: [id number] : 1970 Acct:[id number] Age/Sex: 55 / F ADM Date: 08/21/25 Loc: .ED Attending Dr: Ordering Physician: Eli Hamm DO Date of Service: 08/21/25 Procedure(s): XR chest 2V Accession Number(s): [id number] cc: Eli Hamm DO; Name,Orion MONTERO Reason [...] in OV> 08/21/251850 DD/ 49 TD/TT: 08/21/251849 Commodity Industry Analyst: Procedure Note Donotuseinterpreter, Image - 08/21/[address] [address] XRay Report Signed Patient: Trice MazariegosMR#: [id number] : 1970Acct:[id number] Age/Sex: 55 / FADM Date: 08/21/25 Loc: .ED Attending Dr: Ordering Physician: Eli Hamm DO Date of Service: 08/21/25 Procedure(s): XR chest 2V Accession Number(s): [id number] cc: Eli Hamm DO; Name,Orion MONTERO Reason [...] in OV> 08/21/251850 DD/ 49 TD/TT: 08/21/251849 Commodity Industry Analyst: [facility] External Provider IMG XR PROCEDURES Final Result * High Sensitivity Troponin I (08/21/2025 4:59 PM EDT) TROPONIN I HIGH SENSITIVITY <2.7 <3.5 - 17.0 ng/L [facility] Comment:[employer] [place] high sens itivity Troponin-I results should beused in conjunction with other diagnostic information suchas ECG, clinical observations and information, and patientsymptoms to aid in the diagnosis of [place]. 08/21/2025 4:59 PM EDT 08/21/2025 5:04 PM EDT us Generic External Data Provider LAB BLOOD ORDERAB LES Final Result [facility] [address] [place] [phone] * (ABNORMAL) Comprehensive Metabolic Panel (08/21/2025 4:59 PM EDT) Sodium 143 135 - 145 mmol/L [facility] Potassium 3.6 3.3 - 5.1 mmol/L [facility] Chloride 109(H) 96 - 108 mmol/L [facility] Carbon Dioxide 25 22 - 29 mmol/L [facility] Anion Gap 13 12 - 20 [facility] Urea Nitrogen (BUN) 9 9 - 16 mg/dL [facility] Creatinine, Serum 0.61 0.5 - 1.4 mg/dL [facility] Creatinine Clr Calc Pharmacy 84.3 [facility] Comment:Provided height and weight: 157.48 cm,56.971 kg.eGFR (calculated from the MDRD study equation) and eCrCl(calculated from the Cockcroft-Gault equation) are based ondifferent parameters and may not yield comparable results.If eCrCl result is absurd, please check patient'sheight/weight. Estimated Glomerular Filt Rate >60 [facility] Comment:Chronic Kidney Disea se: Estimated GFR < 60 mL/min/1.06u3Xponuw Kidney Disease: Estimated GFR < 15 mL/min/1.73m2 Glucose 102 60 - 115 mg/dL [facility] Calcium 9.3 8.4 - 10.2 mg/dL [facility] Bilirubin, Total 0.2 0.0 - 1.0 mg/dL [facility] Aspartate Amino Transferase 16 5 - 31 U/L [facility] Alanine Aminotransferase 15 0 - 31 U/L [facility] Total Protein 7.4 6.5 - 8.0 g/dL [facility] Albumin Level 4.7 3.5 - 5.0 g/dL [facility] Alkaline Phosphatase 102 39 - 117 U/L [facility] 08/21/2025 4:59 PM EDT 08/21/2025 5:04 PM EDT us Generic External Data Provider LAB BLOOD ORDERAB LES Final Result [facility] [address] [place] [phone] * (ABNORMAL) CBC auto differential (08/21/2025 4:59 PM EDT) White Blood Count 7.4 4.8 - 10.8 X10*3/uL [facility] Red Blood Count 4.10(L) 4.20 - 5.50 X10*6/uL [facility] Hemoglobin 12.4 12.0 - 16.0 g/dl [facility] Hematocrit 38.8 37.0 - 47.0 % [facility] Mean Corpuscular Volume 94.6 80.0 - 98.0 fL [facility] Mean Corpuscular Hemoglobin 30.2 27.0 - 33.0 pg [facility] Mean Corpuscular HGB Conc 32.0 31.0 - 35.0 g/dl [facility] Red Cell Distribution Width 13.6 11.0 - 16.0 % [facility] Platelet Count 244 160 - 400 X10*3/uL [facility] Mean Platelet Volume 10.9 9.4 - 12.3 fL [facility] Neutrophils Percent Auto 68.7 45 - 73 % [facility] Imm Gran Pct Auto 0.1 0.0 - 0.4 % [facility] Lymphocytes Percent Auto 22.8 20 - 40 % [facility] Monocytes Percent Auto 8.2 2 - 11 % [facility] Eosinophils Percent Auto 0.1 0 - 4 % [facility] Basophils Percent Auto 0.1 0 - 2 % [facility] NRBC Pct Auto 0.0 0.0 - 0.2 /100WBC [facility] Neutrophils Absolute Auto 5.1 2.0 - 8.3 x10*3/uL [facility] Imm Gran Abs Auto 0.01 0.00 - 0.03 X10*3/uL [facility] Lymphocytes Absolute Auto 1.7 1.2 - 4.9 X10*3/uL [facility] Monocytes Absolute Auto 0.6 0.1 - 1.2 X10*3/uL [facility] Eosinophils Absolute Auto 0.0 0.0 - 0.4 X10*3/uL [facility] Basophils Absolute Auto 0.0 0.0 - 0.2 X10*3/uL [facility] NRBC Abs Auto 0.000 0.0 - 0.012 X10*3/uL [facility] 08/21/2025 4:59 PM EDT 08/21/2025 5:04 PM EDT us Generic External Data Provider LAB BLOOD ORDERAB LES Final Result Performing Organization Address City/State/[facility] Co de Phone Number [facility] [address] [place] [phone] documented in this encounter Visit Diagnoses Not on filedocumented in this encounter Additional Health Concerns Assessment Noted Time PHQ-9 Depression Total Score: 17 025 8:58 AM EST documented as of this encounter Care Teams Joint Supervisor Relationship Specialty Start Date End Date Name, MD Orion [address] [place] [address] PCP - General Family Medicine 02/17/16 Esdras Gaines, RN [address] [place] [phone] Registered Nurse Family Medicine 07/04/25 Suyapa Adkins 07/04/25 documented as of this encounter
--- OUTSIDE RECORDS SUMMARY | 2025-08-21 20:20 | XMS_ITS | Encounter Summary ---
Author Organization [employer] Address [address] [facility] [address] [place] [address] Care Team Providers Care Ball Machine Operator Name Role Phone Name, Orion MONTERO Primary Care Provider [phone] Esdras Gaines RN Unavailable [phone] Suyapa Adkins Unavailable Reason for Visit * Reason Comments Med Refill Encounter Details Date Type Department Care Team (Late st Contact Info) Description 07/25/2024 Refill [facility] [address] [place], [place] [phone] Name, MD Orion [address] [place] [address] Anxiety disorder, unspecified Social History Tobacco Use [...] documented as of this encounter Care Teams Ball Machine Operator Relationship Specialty Start Date End Date Name, MD Orion [address] [place] [address] PCP - General Family Medicine 02/17/16 Esdras Gaines, ARLETH [address] [place] [address] Registered Nurse Family Medicine 07/04/25 Suyapa Adkins 07/04/25 documented as of this encounter
--- OUTSIDE RECORDS SUMMARY | 2025-08-21 20:20 | XMS_ITS | Encounter Summary ---
Author Organization [employer] Address [address] [facility] [address] [place] [address] Care Team Providers Care Currency Examiner Name Role Phone Name, Orion MONTERO Primary Care Provider [phone] Esdras Gaines RN Unavailable [phone] Suyapa Adkins Unavailable Reason for Visit * Reason Comments Med Refill Encounter Details Date Type Department Care Team (Late st Contact Info) Description 10/27/2023 Refill [facility] [address] [place], [place] [phone] Name, MD Orion [address] [place] [address] Social History Tobacco Use Types Packs/Day Years [...] documented as of this encounter Care Teams Currency Examiner Relationship Specialty Start Date End Date Name, MD Orion [address] [place] [address] PCP - General Family Medicine 02/17/16 Esdras Gaines, ARLETH [address] [place] [phone] Registered Nurse Family Medicine 07/04/25 Suyapa Adkins 07/04/25 documented as of this encounter
--- OUTSIDE RECORDS SUMMARY | 2025-08-21 20:21 | XMS_ITS | Encounter Summary ---
Author Organization [employer] Address [address] [facility] [address] [place] [address] Care Team Providers Care Beer Merchant Name Role Phone Name, Orion MONTERO Primary Care Provider [phone] sEdras Gaines RN Unavailable [phone] Suyapa Adkins Unavailable Reason for Visit * Reason Onset Date Comments booster shake request 12/16/2022 Encounter Details Date Type Department Care Team (Late st Contact Info) Description 12/16/2022 Telephone [facility] [address] [place], [place] [phone] Name, MD Orion [address] [place] [address] booster shake request Social History Tobacco Use Types Packs/Day Years Used Date Smoking Tobacco: Never Assessed Comments Unknown Sex and Gender Information Value Date Recorded Sex Assigned at Female 08/23/2022 10:15 AM EDT Legal Sex Female 10:15 AM EDT Gender Identity Female 08/23/2022 10:15 AM EDT Sexual Orientation Straight 08/23/2022 10 :15 AM EDT documented as of this encounter Miscellaneous Notes * Telephone Encounter - Beverly Irizarry - 12/16/2022 11:20 AM EST TC to patient and informed her that unfortunately in order to continue Boost we require chart notesfrom provider and she missed her last two with him. Reminded her she does have an upcoming appointment with provider on 12/29 for HDF. * Telephone Encounter - Saige Ribeiro - 12/16/2022 9:53 AM EST Tc from pt requesting booster nutritional drink . documented in this encounter Plan of Treatment Not on file documented as of this encounter Visit Diagnoses Not on filedocumented in this encounter Care Teams Beer Merchant Relationship Specialty Start Date End Date Name, MD Orion [address] [place] [address] PCP - General Family Medicine 02/17/16 Esdras Gaines, ARLETH [address] [place] [address] Registered Nurse Family Medicine 07/04/25 Suyapa Adkins 07/04/25 documented as of this encounter
== END 2025-08-21 20:05 | disposition home or self-care (01) ==
PROVIDERS: Student in an Organized Health Care Education/Training Program; Emergency Provider Emergency Medicine; PCP Internal Medicine Geriatric Medicine
DX: F41.9 Anxiety disorder, unspecified (principal); R00.2 Palpitations; R07.9 Chest pain, unspecified; M25.519 Pain in unspecified shoulder; I10 Essential (primary) hypertension
CPT/HCPCS: 36415; 71046; 80053; 84484; 85025; 85379; 93005; 99284; 99285

== ENCOUNTER → 2025-08-21 16:45 | Outpatient (BNV) | payer MEDICAID, SELFPAY | PROVIDERS: Emergency Provider Emergency Medicine; PCP Internal Medicine Geriatric Medicine; Visit Provider Internal Medicine | DX: I51.7 Cardiomegaly (principal) | CPT/HCPCS: 93010 ==

== ENCOUNTER → 2025-08-21 16:45 | Outpatient (BNV) | payer MEDICAID, SELFPAY | PROVIDERS: Emergency Provider Emergency Medicine; PCP Internal Medicine Geriatric Medicine; Visit Provider Student in an Organized Health Care Education/Training Program | DX: R07.9 Chest pain, unspecified (principal) | CPT/HCPCS: 71046 ==